=== PATIENT | female | born 1950 | race African-American/Black ===

== ENCOUNTER 2020-03-05 08:27 | Outpatient (REF) | payer OTHER, MEDICAID, SELFPAY ==
[2020-03-05 11:45] LABS: Glucose Urine UA NEG (NEG); Leukocyte Esterase Urine NEG (NEG); Nitrite Urine NEG (NEG); PH 5.5 (5.0-8.0); Urine Blood 2+ (NEG); Urine Ketones NEG (NEG); Urine Protein NEG (NEG-TRACE)
[2020-03-05 11:48] LABS: Appearance Urine CLEAR; Color Urine YELLOW
[2020-03-05 12:22] LABS: Erythrocyte Sedimentation Rate 13 MM/HR (0-20)
[2020-03-05 12:29] LABS: Bacteria Urine TRACE /LPF; Squamous Epithelial Cell Urine 1+ /LPF; WBC Urine 0-2 /HPF (0-4)
== END 2020-03-05 08:28 | disposition home or self-care (01) ==
LOC: HO.HMGCLDS 08:27
PROVIDERS: PCP Internal Medicine; Visit Provider Internal Medicine
DX: R30.0 Dysuria (principal); M19.90 Unspecified osteoarthritis, unspecified site
CPT/HCPCS: 36415; 81001; 85652

== ENCOUNTER 2021-04-15 09:21 | Outpatient (REF) | payer OTHER, SELFPAY ==
[2021-04-15 11:26] LABS: Hematocrit 37.6 % (37.0-47.0); Hemoglobin 12.6 g/dl (12.0-16.0); Mean Corpuscular HGB Conc 33.5 g/dl (31.0-35.0); Mean Corpuscular Hemoglobin 32.3 pg (27.0-33.0); Mean Corpuscular Volume 96.4 fL (80.0-98.0); Mean Platelet Volume 10.6 fL (9.4-12.3); Platelet Count 235 X10*3/uL (160-400); Red Cell Distribution Width 12.7 % (11.0-16.0); White Blood Count 7.7 X10*3/uL (4.8-10.8)
[2021-04-15 12:08] LABS: TSH reflex Free T4 0.68 uIU/mL (0.32-4.0)
[2021-04-15 12:09] LABS: Alanine Aminotransferase 18 U/L (0-31); Albumin Level 4.1 g/dL (3.5-5.0); Alkaline Phosphatase 85 U/L (39-117); Anion Gap 14 (12-20); Aspartate Amino Transferase 48 U/L (5-31); Bilirubin Total 0.9 mg/dL (0.0-1.0); Blood Urea Nitrogen 8 mg/dL (9-16); Calcium 9.3 mg/dL (8.4-10.2); Carbon Dioxide 28 mmol/L (22-29); Chloride 101 mmol/L (96-108); Cholesterol 111 mg/dL; Estimated Glomerular Filt Rate > 60; Glucose Fasting 245 mg/dL (60-99); HDL Cholesterol 42 mg/dL; LDL Cholesterol Calculated 54 mg/dl; Potassium 4.7 mmol/L (3.3-5.1); Sodium 138 mmol/L (135-145); Total Protein 6.5 g/dL (6.5-8.0); Triglycerides 76 mg/dL
[2021-04-15 12:16] LABS: Estimated Average Glucose 206 mg/dL; Hemoglobin A1c % 8.8 %
[2021-04-15 12:18] LABS: Creatinine Urine 93.94 mg/dL; Microalbum/Creatinine Ratio Ur 23.4 ug/mg cr
== END 2021-04-15 09:22 | disposition home or self-care (01) ==
LOC: HO.HMGCLDS 09:21
PROVIDERS: PCP Internal Medicine; Visit Provider Internal Medicine
DX: E78.5 Hyperlipidemia, unspecified (principal); I10 Essential (primary) hypertension; E11.9 Type 2 diabetes mellitus without complications
CPT/HCPCS: 36415; 80053; 80061; 82043; 83036; 84443; 85027

== ENCOUNTER 2021-05-05 14:11 | Outpatient (REF) | payer OTHER, SELFPAY | END 2021-05-05 14:12 | disposition home or self-care (01) | LOC: HO.LNP 14:11 | PROVIDERS: Visit Provider Physician Assistant Medical | DX: L98.9 Disorder of the skin and subcutaneous tissue, unspecified (principal) | CPT/HCPCS: 87071; 87205 ==

== ENCOUNTER 2021-11-29 11:17 | Outpatient (REF) | payer OTHER, SELFPAY ==
[2021-11-29 13:33] LABS: MANUAL DIFF FLAG NO
[2021-11-29 13:41] LABS: Appearance Urine CLEAR; Color Urine YELLOW; Glucose Urine UA NEG (NEG); Leukocyte Esterase Urine NEG (NEG); Nitrite Urine NEG (NEG); Specific Gravity - Urine 1.015 (1.005-1.025); UACC Culture Trigger NO; Urine Blood 1+ (NEG); Urine Ketones NEG (NEG); Urine Protein NEG (NEG-TRACE)
[2021-11-29 13:43] LABS: Basophils Percent Auto 0.4 % (0-2); Eosinophils Absolute Auto 0.7 X10*3/uL (0.0-0.4); Eosinophils Percent Auto 8.6 % (0-4); Hematocrit 36.8 % (37.0-47.0); Hemoglobin 11.8 g/dl (12.0-16.0); Imm Gran Abs Auto 0.02 X10*3/uL (0.00-0.03); Imm Gran Pct Auto 0.3 % (0.0-0.4); Lymphocytes Absolute Auto 3.2 X10*3/uL (1.2-4.9); Lymphocytes Percent Auto 40.2 % (20-40); Mean Corpuscular HGB Conc 32.1 g/dl (31.0-35.0); Mean Corpuscular Hemoglobin 31.5 pg (27.0-33.0); Mean Corpuscular Volume 98.1 fL (80.0-98.0); Mean Platelet Volume 10.5 fL (9.4-12.3); Monocytes Absolute Auto 0.4 X10*3/uL (0.1-1.2); Monocytes Percent Auto 5.4 % (2-11); Neutrophils Absolute Auto 3.6 x10*3/uL (2.0-8.3); Neutrophils Percent Auto 45.1 % (45-73); Platelet Count 245 X10*3/uL (160-400); Red Blood Count 3.75 X10*6/uL (4.20-5.50); Red Cell Distribution Width 13.1 % (11.0-16.0); White Blood Count 7.9 X10*3/uL (4.8-10.8)
[2021-11-29 14:04] LABS: Squamous Epithelial Cell Urine 1+ /LPF
[2021-11-29 14:05] LABS: Bacteria Urine 1+ /LPF; WBC Urine 0 /HPF (0-4)
[2021-11-29 14:07] LABS: Creatinine Urine 74.93 mg/dL
[2021-11-29 14:16] LABS: Alanine Aminotransferase 15 U/L (0-31); Albumin Level 4.3 g/dL (3.5-5.0); Alkaline Phosphatase 81 U/L (39-117); Anion Gap 12 (12-20); Aspartate Amino Transferase 50 U/L (5-31); Bilirubin Total 0.8 mg/dL (0.0-1.0); Blood Urea Nitrogen 11 mg/dL (9-16); Calcium 9.6 mg/dL (8.4-10.2); Carbon Dioxide 28 mmol/L (22-29); Chloride 104 mmol/L (96-108); Cholesterol 132 mg/dL; Estimated Glomerular Filt Rate > 60; Glucose Fasting 119 mg/dL (60-99); HDL Cholesterol 51 mg/dL; LDL Cholesterol Calculated 58 mg/dl; Potassium 4.7 mmol/L (3.3-5.1); Sodium 139 mmol/L (135-145); Total Protein 6.9 g/dL (6.5-8.0); Triglycerides 119 mg/dL
== END 2021-11-29 11:18 | disposition home or self-care (01) ==
LOC: HO.HMGCLDS 11:17
PROVIDERS: PCP Internal Medicine; Visit Provider Internal Medicine
DX: E11.9 Type 2 diabetes mellitus without complications (principal); E78.5 Hyperlipidemia, unspecified; I10 Essential (primary) hypertension
CPT/HCPCS: 36415; 80053; 80061; 81001; 82043; 85025

== ENCOUNTER 2022-06-01 09:34 | Outpatient (REF) | payer OTHER, SELFPAY ==
[2022-06-01 11:14] LABS: MANUAL DIFF FLAG NO
[2022-06-01 11:17] LABS: Basophils Percent Auto 0.4 % (0-2); Eosinophils Absolute Auto 0.8 X10*3/uL (0.0-0.4); Eosinophils Percent Auto 11.1 % (0-4); Hematocrit 39.6 % (37.0-47.0); Hemoglobin 13.4 g/dl (12.0-16.0); Imm Gran Abs Auto 0.02 X10*3/uL (0.00-0.03); Imm Gran Pct Auto 0.3 % (0.0-0.4); Lymphocytes Absolute Auto 2.5 X10*3/uL (1.2-4.9); Lymphocytes Percent Auto 34.6 % (20-40); Mean Corpuscular HGB Conc 33.8 g/dl (31.0-35.0); Mean Corpuscular Volume 94.5 fL (80.0-98.0); Mean Platelet Volume 10.8 fL (9.4-12.3); Monocytes Absolute Auto 0.4 X10*3/uL (0.1-1.2); Monocytes Percent Auto 5.8 % (2-11); Neutrophils Absolute Auto 3.4 x10*3/uL (2.0-8.3); Neutrophils Percent Auto 47.8 % (45-73); Platelet Count 249 X10*3/uL (160-400); Red Blood Count 4.19 X10*6/uL (4.20-5.50); Red Cell Distribution Width 12.8 % (11.0-16.0); White Blood Count 7.2 X10*3/uL (4.8-10.8)
[2022-06-01 11:50] LABS: Alanine Aminotransferase 17 U/L (0-31); Albumin Level 4.3 g/dL (3.5-5.0); Alkaline Phosphatase 84 U/L (39-117); Anion Gap 11 (12-20); Aspartate Amino Transferase 47 U/L (5-31); Blood Urea Nitrogen 9 mg/dL (9-16); Calcium 9.6 mg/dL (8.4-10.2); Carbon Dioxide 28 mmol/L (22-29); Chloride 103 mmol/L (96-108); Cholesterol 121 mg/dL; Estimated Glomerular Filt Rate > 60; HDL Cholesterol 39 mg/dL; LDL Cholesterol Calculated 62 mg/dl; Potassium 4.5 mmol/L (3.3-5.1); Sodium 137 mmol/L (135-145); Total Protein 6.7 g/dL (6.5-8.0); Triglycerides 100 mg/dL
[2022-06-01 11:52] LABS: Estimated Average Glucose 272 mg/dL; Hemoglobin A1c % 11.1 %
[2022-06-01 11:53] LABS: Glucose Fasting 371 mg/dL (60-99)
== END 2022-06-01 09:35 | disposition home or self-care (01) ==
LOC: HO.HMGCLDS 09:34
PROVIDERS: PCP Internal Medicine; Visit Provider Internal Medicine
DX: E11.9 Type 2 diabetes mellitus without complications (principal); E78.5 Hyperlipidemia, unspecified
CPT/HCPCS: 36415; 80053; 80061; 83036; 85025

== ENCOUNTER 2022-08-01 08:13 | Outpatient (REF) | payer OTHER, SELFPAY | END 2022-08-01 08:14 | disposition home or self-care (01) | LOC: HO.SH 08:13 | PROVIDERS: Visit Provider Internal Medicine | DX: Z01.118 Encounter for examination of ears and hearing with other abnormal findings (principal); H90.3 Sensorineural hearing loss, bilateral | CPT/HCPCS: 92553; 92555; 92567 ==

== ENCOUNTER 2022-09-22 09:34 | Outpatient (REF) | payer OTHER, SELFPAY ==
[2022-09-22 12:12] LABS: Alanine Aminotransferase 14 U/L (0-31); Albumin Level 4.2 g/dL (3.5-5.0); Alkaline Phosphatase 80 U/L (39-117); Anion Gap 11 (12-20); Aspartate Amino Transferase 44 U/L (5-31); Bilirubin Total 0.8 mg/dL (0.0-1.0); Blood Urea Nitrogen 13 mg/dL (9-16); Calcium 9.3 mg/dL (8.4-10.2); Carbon Dioxide 29 mmol/L (22-29); Chloride 107 mmol/L (96-108); Cholesterol 121 mg/dL; Estimated Glomerular Filt Rate > 60; Glucose Fasting 124 mg/dL (60-99); HDL Cholesterol 47 mg/dL; LDL Cholesterol Calculated 61 mg/dl; Potassium 4.6 mmol/L (3.3-5.1); Sodium 142 mmol/L (135-145); Total Protein 6.6 g/dL (6.5-8.0); Triglycerides 69 mg/dL
[2022-09-22 12:20] LABS: Estimated Average Glucose 146 mg/dL; Hemoglobin A1c % 6.7 %
== END 2022-09-22 09:35 | disposition home or self-care (01) ==
LOC: HO.HMGCLDS 09:34
PROVIDERS: PCP Internal Medicine; Visit Provider Internal Medicine
DX: E78.5 Hyperlipidemia, unspecified (principal); I10 Essential (primary) hypertension; E11.9 Type 2 diabetes mellitus without complications
CPT/HCPCS: 36415; 80053; 80061; 83036

== ENCOUNTER 2022-12-01 09:20 | Outpatient (REF) | payer OTHER, SELFPAY ==
[2022-12-01 11:29] LABS: MANUAL DIFF FLAG NO
[2022-12-01 11:31] LABS: Appearance Urine Clear; Color Urine Yellow; Glucose Urine UA Negative (Negative); Leukocyte Esterase Urine Negative (Negative); Nitrite Urine Negative (Negative); PH 5.5 (5.0-9.0); Specific Gravity - Urine <= 1.005 (1.005-1.025); Urine Blood Negative (Negative); Urine Ketones Negative (Negative); Urine Protein Negative (Neg-Trace)
[2022-12-01 11:40] LABS: Basophils Percent Auto 0.4 % (0-2); Eosinophils Absolute Auto 0.6 X10*3/uL (0.0-0.4); Eosinophils Percent Auto 8.3 % (0-4); Hematocrit 36.3 % (37.0-47.0); Hemoglobin 11.8 g/dl (12.0-16.0); Imm Gran Abs Auto 0.01 X10*3/uL (0.00-0.03); Imm Gran Pct Auto 0.1 % (0.0-0.4); Lymphocytes Absolute Auto 2.6 X10*3/uL (1.2-4.9); Lymphocytes Percent Auto 38.6 % (20-40); Mean Corpuscular HGB Conc 32.5 g/dl (31.0-35.0); Mean Corpuscular Hemoglobin 31.4 pg (27.0-33.0); Mean Corpuscular Volume 96.5 fL (80.0-98.0); Mean Platelet Volume 10.7 fL (9.4-12.3); Monocytes Absolute Auto 0.4 X10*3/uL (0.1-1.2); Monocytes Percent Auto 6.6 % (2-11); Neutrophils Absolute Auto 3.1 x10*3/uL (2.0-8.3); Platelet Count 237 X10*3/uL (160-400); Red Blood Count 3.76 X10*6/uL (4.20-5.50); Red Cell Distribution Width 13.2 % (11.0-16.0); White Blood Count 6.7 X10*3/uL (4.8-10.8)
[2022-12-01 12:10] LABS: Alanine Aminotransferase 17 U/L (0-31); Albumin Level 4.2 g/dL (3.5-5.0); Alkaline Phosphatase 80 U/L (39-117); Anion Gap 15 (12-20); Aspartate Amino Transferase 45 U/L (5-31); Bilirubin Total 0.9 mg/dL (0.0-1.0); Blood Urea Nitrogen 9 mg/dL (9-16); Calcium 9.5 mg/dL (8.4-10.2); Carbon Dioxide 25 mmol/L (22-29); Chloride 106 mmol/L (96-108); Cholesterol 116 mg/dL; Estimated Average Glucose 123 mg/dL; Estimated Glomerular Filt Rate > 60; Glucose Fasting 122 mg/dL (60-99); HDL Cholesterol 41 mg/dL; Hemoglobin A1c % 5.9 %; LDL Cholesterol Calculated 59 mg/dl; Potassium 4.2 mmol/L (3.3-5.1); Sodium 142 mmol/L (135-145); Triglycerides 83 mg/dL
[2022-12-01 12:26] LABS: TSH reflex Free T4 0.55 uIU/mL (0.32-4.0)
[2022-12-01 12:27] LABS: Creatinine Urine 35.09 mg/dL; Microalbumin Urine < 5.0 mg/L
== END 2022-12-01 09:21 | disposition home or self-care (01) ==
LOC: HO.HMGCLDS 09:20
PROVIDERS: PCP Internal Medicine; Visit Provider Internal Medicine
DX: E11.9 Type 2 diabetes mellitus without complications (principal); E66.9 Obesity, unspecified; R30.0 Dysuria; E78.5 Hyperlipidemia, unspecified
CPT/HCPCS: 36415; 80053; 80061; 81003; 82043; 83036; 84443; 85025

== ENCOUNTER 2022-12-28 08:51 | Outpatient (AMB) | payer OTHER, SELFPAY ==
--- NOTE | 2022-12-28 09:16 | MHC.PC.OV ---
Vital Signs 12/28/22 09:17 Height 5 ft 3 in Weight 252 lb BMI 44.6 BP 116/64 Blood Pressure Location Rt brachial Position Sitting Pulse 63 Pulse Source Pulse Oximeter Pulse Oximetry (%) 97 Oxygen Delivery Method Room Air Intake Visit Reasons: Annual PE Intake Note: Pt is here today for PE. Allergies No Known Allergies Allergy (Verified 12/28/22 09:19) Tobacco use date assessed: 12/28/22 Fall risk assessment: No Falls in past year Last assessed Fall Risk: 12/28/22 Dental Screening Dental Screen Date: 12/28/22 Did you have a dental visit in the last 12 months?: Yes Did you have a dental problem in the last 6 months where you did not have access to dental care?: No Was dental information given to patient?: Patient has dentist HPI Annual PE HPI Details Patient presents for physical. She complains of worsening lower extremity swelling for the last month. Patient reports swelling worse at the end of the day. She has been sitting a lot with her legs down. Patient denies PND orthopnea dyspnea on exertion. Type 2 diabetes and hyperlipidemia are controlled on current medications. [facility] Medical History (Updated 12/28/22 @ 12:49 by Lolly Mchugh MD) Arthritis Diabetes DM type 2 (diabetes mellitus, type 2) Dysuria Foot pain, bilateral History of mammogram HTN (hypertension) Hyperlipidemia Normal colonoscopy Obesity Osteoarthritis of right knee Osteoarthritis of shoulders, bilateral Surgical History H/O colonoscopy History of hysterectomy History of knee replacement procedure of left knee Family History Father No problems noted. Mother No problems noted. Brother No problems noted. Brother No problems noted. Sister No problems noted. Sister No problems noted. Daughter No problems noted. Social History Housing: House Patient Tobacco Use Status: Current everyday Tobacco user Tobacco use type: Cigarette Cigarettes Per Day: 1 e-Cigarette/Vaping Use: Never Used Current occupational status: retired Cognitive needs: No Hearing needs: No Vision needs: Yes Questionnaire Thrive Questionnaire Date Thrive assessed: 07/21/22 AUDIT C Alcohol Use Questionnaire (AUDIT-C) 1. How often do you have a drink containing alcohol?: Never 3. How often do you have six or more drinks on one occasion?: Never Total Score: 0 GINO-7 AMB Questionnaire GINO-7 Date GINO - 7 assessed: 07/21/22 Source: Developed by Drs. Luis Armando Morales, Karime Green, Jann Joaquin and colleagues, with an educational denny from [employer]. Review of Systems Const All systems reviewed & are unremarkable except as noted in HPI and below Reports no additional complaints ENT Reports no additional complaints Card Reports no additional complaints Resp Reports no additional complaints GI Reports no additional complaints Reports no additional complaints Physical exam (Primary Care) Vital Signs: Last Vital Signs Pulse 63 12/28/22 09:17 BP 116/64 12/28/22 09:17 Pulse Ox 97 12/28/22 09:17 Oxygen Delivery Method Room Air 12/28/22 09:17 BMI result Body Mass Index 44.6 Tobacco/Smoking Status: Tobacco use Status Tobacco use date assessed 12/28/22 12/28/22 09:21 Patient Tobacco Use Status Current everyday Tobacco 12/28/22 09:21 Tobacco use type Cigarette 12/28/22 09:21 e-Cigarette/Vaping Use Never Used 12/28/22 09:21 Thrive Assessment: Date of Thrive Assessment Date Thrive assessed 07/21/22 12/28/22 09:21 Const General: no acute distress HENMT Head: Yes normal to inspection Ears: hearing grossly normal bilaterally Throat: Yes posterior oropharynx normal Neck Neck: Yes no lymphadenopathy and Yes supple Resp Effort & Inspection: normal respiratory effort Auscultation: clear to auscultation bilaterally Cardio Rhythm: regular rhythm Heart sounds: S1 normal heart sound present and S2 normal heart sound present GI Inspection: Yes normal to inspection and Yes obesity Palpation (GI): Soft to palpation Percussion: Yes normal to percussion Auscultation: normal bowel sounds Extrem Other: 4+ pitting edema bilaterally Assessment and Plan Assessment & Plan (1) Edema: Code(s): R60.9 - Edema, unspecified Plan: Start 40 mg of Lasix and patient was advised to elevate lower extremities and were compression stockings. Check basic metabolic panel and BNP in 1 week (2) DM type 2 (diabetes mellitus, type 2): Code(s): E11.9 - Type 2 diabetes mellitus without complications Plan: A1c is down to 5.9, continue ADA diet and metformin (3) Obesity: Code(s): E66.9 - Obesity, unspecified Plan: Weight loss discussed with the patient (4) Annual physical exam: Code(s): Z00.00 - Encounter for general adult medical examination without abnormal findings Plan: Well-balanced diet increase physical activity weight loss discussed with the patient (5) Hyperlipidemia: Comment: noncompliant with med Code(s): E78.5 - Hyperlipidemia, unspecified Plan: Continue statin Orders: Orders Basic Metabolic Panel 1 Week E11.9 - Type 2 diabetes mellitus without complications, R60.9 - Edema, unspecified B Type Natriuretic Peptide 1 Week E11.9 - Type 2 diabetes mellitus without complications, R60.9 - Edema, unspecified Medications: New furosemide (Lasix) 40 mg PO DAILY 30 tabs 3RF Coding Level of Care Code Est Pt Prev Care >65y(55434) Diagnoses Edema R60.9 DM type 2 (diabetes mellitus, type 2) E11.9 Obesity E66.9 Annual physical exam Z00.00 Hyperlipidemia E78.5
[2022-12-28 09:17] VITALS: BP 116/64; PULSE 63; O2SAT 97; BMI 44.6
== END 2022-12-28 11:19 | disposition home or self-care (01) ==
PROVIDERS: Visit Provider Internal Medicine
DX: Z00.00 Encounter for general adult medical examination without abnormal findings (principal); E11.9 Type 2 diabetes mellitus without complications; E66.9 Obesity, unspecified; Z68.41 Body mass index [BMI] 40.0-44.9, adult; R60.9 Edema, unspecified; E78.5 Hyperlipidemia, unspecified
CPT/HCPCS: 99397

== ENCOUNTER 2023-01-04 09:53 | Outpatient (REF) | payer OTHER, MEDICAID, SELFPAY ==
[2023-01-04 14:13] LABS: Anion Gap 17 (12-20); Blood Urea Nitrogen 9 mg/dL (9-16); Calcium 9.9 mg/dL (8.4-10.2); Carbon Dioxide 25 mmol/L (22-29); Chloride 101 mmol/L (96-108); Estimated Glomerular Filt Rate > 60; Glucose Random 224 mg/dL (60-115); Potassium 4.4 mmol/L (3.3-5.1); Sodium 139 mmol/L (135-145)
[2023-01-04 14:15] LABS: B Type Natriuretic Peptide < 10 pg/mL (<100)
== END 2023-01-04 09:54 | disposition home or self-care (01) ==
LOC: HO.HMGCLDS 09:53
PROVIDERS: PCP Internal Medicine; Visit Provider Internal Medicine
DX: E11.9 Type 2 diabetes mellitus without complications (principal); R60.9 Edema, unspecified
CPT/HCPCS: 36415; 80048; 83880

== ENCOUNTER 2023-02-09 09:57 | Outpatient (AMB) | payer OTHER, SELFPAY ==
[2023-02-09 10:53] VITALS: BP 122/66; PULSE 67; O2SAT 97; BMI 43.6
--- NOTE | 2023-02-09 10:53 | MHC.PC.OV ---
Vital Signs 02/09/23 10:53 Height 5 ft 3 in Weight 246 lb BMI 43.6 BP 122/66 Blood Pressure Location Lt brachial Position Sitting Pulse 67 Pulse Source Pulse Oximeter Pulse Oximetry (%) 97 Oxygen Delivery Method Room Air Intake Visit Reasons: 6week follow up Intake Note: Pt is here today for 6 weeks follow up visit. Pt's daughter states that pt fell yesterday and she was at [facility] ER. Pt needs referral to [facility]. Allergies No Known Allergies Allergy (Verified 02/09/23 10:55) Medication List - Last Reconciled 02/09/23 by Lolly Mchugh MD atorvastatin 40 mg PO DAILY 90 days blood sugar diagnostic ([employer] Ultra Blue Test Strip) twice a day blood-glucose meter ([employer] Verio Flex Start kit) As directed clotrimazole 2% (Clotrimazole 3 Day) 1 appful vaginal BEDTIME 3 days dulaglutide (Trulicity) 1.5 mg (0.5 mL) subcut QWEEK fluconazole 150 mg PO Q3D 2 doses furosemide 40 mg PO DAILY metformin 1,000 mg PO BID nystatin 1 appl topical DAILY nystatin apply topically daily; pen needle, diabetic (BD Ultra-Fine Short Pen Needle) As directed Tobacco use date assessed: 12/28/22 HPI 6week follow up HPI Details PATIENT PRESENTS FOR THE FOLLOW-UP OF CHRONIC LOWER EXTREMITY EDEMA IMPROVED ON 40 MG OF FUROSEMIDE. PATIENT TRIPPED AND FELL LAST WEEK AND WENT TO THE ER COMPLAINING OF RIGHT KNEE INJURY. SHE HAD NEGATIVE X-RAY ,WAS GIVEN KNEE BRACE AND WAS RECOMMENDED TO SEE ORTHOPEDIC SURGEON. TYPE 2 DIABETES IS STABLE ON METFORMIN [facility] Medical History (Updated 02/09/23 @ 11:28 by Lolly Mchugh MD) DM type 2 (diabetes mellitus, type 2) Foot pain, bilateral Osteoarthritis of shoulders, bilateral Normal colonoscopy Dysuria Arthritis History of mammogram Osteoarthritis of right knee Obesity Hyperlipidemia Diabetes HTN (hypertension) Surgical History History of hysterectomy History of knee replacement procedure of left knee H/O colonoscopy Family History Father No problems noted. Mother No problems noted. Brother No problems noted. Brother No problems noted. Sister No problems noted. Sister No problems noted. Daughter No problems noted. Social History Housing: House Patient Tobacco Use Status: Current everyday Tobacco user Tobacco use type: Cigarette Cigarettes Per Day: 1 e-Cigarette/Vaping Use: Never Used Current occupational status: retired Cognitive needs: No Hearing needs: No Vision needs: Yes Questionnaire Thrive Questionnaire Date Thrive assessed: 07/21/22 GINO-7 AMB Questionnaire GINO-7 Date GINO - 7 assessed: 07/21/22 Source: Developed by Drs. Luis Armando Morales, Karime Green, Jann Joaquin and colleagues, with an educational denny from [employer]. Review of Systems Const All systems reviewed & are unremarkable except as noted in HPI and below Reports no additional complaints Eyes Reports no additional complaints ENT Reports no additional complaints Card Reports no additional complaints Resp Reports no additional complaints GI Reports no additional complaints Reports no additional complaints Physical exam (Primary Care) Vital Signs: Last Vital Signs Pulse 67 02/09/23 10:53 BP 122/66 02/09/23 10:53 Pulse Ox 97 02/09/23 10:53 Oxygen Delivery Method Room Air 02/09/23 10:53 BMI result Body Mass Index 43.6 Tobacco/Smoking Status: Tobacco use Status Tobacco use date assessed 12/28/22 02/09/23 10:56 Patient Tobacco Use Status Current everyday Tobacco 02/09/23 10:56 Tobacco use type Cigarette 02/09/23 10:56 e-Cigarette/Vaping Use Never Used 02/09/23 10:56 Thrive Assessment: Date of Thrive Assessment Date Thrive assessed 07/21/22 02/09/23 10:56 Const General: no acute distress Eyes General: appearance normal, both eyes and all related structures Resp Effort & Inspection: normal respiratory effort Auscultation: clear to auscultation bilaterally Cardio Rhythm: regular rhythm Heart sounds: S1 normal heart sound present and S2 normal heart sound present GI Inspection: Yes normal to inspection Palpation (GI): Soft to palpation Extrem Other: 1+ pitting edema bilaterally, right knee in knee brace Assessment and Plan Assessment & Plan (1) DM type 2 (diabetes mellitus, type 2): Code(s): E11.9 - Type 2 diabetes mellitus without complications Plan: Continue metformin ADA diet follow-up in 6 months with a fasting labs before (2) HTN (hypertension): Comment: patient will monitor her blood pressure. She has not been taking lisinopril. Code(s): I10 - Essential (primary) hypertension Plan: Continue low-sodium diet increase physical activity weight loss discussed with the patient (3) Hyperlipidemia: Comment: noncompliant with med Code(s): E78.5 - Hyperlipidemia, unspecified Plan: Continue low-cholesterol diet (4) Obesity: Code(s): E66.9 - Obesity, unspecified Plan: Weight loss discussed with the patient (5) Edema: Code(s): R60.9 - Edema, unspecified Plan: Continue 40 mg of furosemide Orders: Orders Comprehensive [place]. Panel Fast 6 Months E11.9 - Type 2 diabetes mellitus without complications, E66.9 - Obesity, unspecified, E78.5 - Hyperlipidemia, unspecified, I10 - Essential (primary) hypertension Lipid Panel 6 Months E11.9 - Type 2 diabetes mellitus without complications, E66.9 - Obesity, unspecified, E78.5 - Hyperlipidemia, unspecified, I10 - Essential (primary) hypertension Hemoglobin A1c 6 Months E11.9 - Type 2 diabetes mellitus without complications, E66.9 - Obesity, unspecified, E78.5 - Hyperlipidemia, unspecified, I10 - Essential (primary) hypertension Complete Blood Count Auto Diff 6 Months E11.9 - Type 2 diabetes mellitus without complications, E66.9 - Obesity, unspecified, E78.5 - Hyperlipidemia, unspecified, I10 - Essential (primary) hypertension Microalbumin, Random (w Creat) 6 Months E11.9 - Type 2 diabetes mellitus without complications, E66.9 - Obesity, unspecified, E78.5 - Hyperlipidemia, unspecified, I10 - Essential (primary) hypertension Referrals Orthopedics Referral E11.9 - Type 2 diabetes mellitus without complications, E66.9 - Obesity, unspecified, E78.5 - Hyperlipidemia, unspecified, I10 - Essential (primary) hypertension, S89.91XA - Unspecified injury of right lower leg, initial encounter Coding Level of Care Code Est Pt Level 4 (13863) Diagnoses DM type 2 (diabetes mellitus, type 2) E11.9 HTN (hypertension) I10 Hyperlipidemia E78.5 Obesity E66.9 Edema R60.9
== END 2023-02-09 11:38 | disposition home or self-care (01) ==
PROVIDERS: PCP Internal Medicine; Visit Provider Internal Medicine
DX: E11.9 Type 2 diabetes mellitus without complications (principal); I10 Essential (primary) hypertension; E66.9 Obesity, unspecified; Z68.41 Body mass index [BMI] 40.0-44.9, adult; E78.5 Hyperlipidemia, unspecified; R60.9 Edema, unspecified
CPT/HCPCS: 99214

== ENCOUNTER 2023-08-20 08:48 | Outpatient (REF) | payer OTHER, MEDICAID, SELFPAY ==
[2023-08-20 10:57] LABS: MANUAL DIFF FLAG NO
[2023-08-20 11:24] LABS: Basophils Percent Auto 0.5 % (0-2); Eosinophils Absolute Auto 0.5 X10*3/uL (0.0-0.4); Eosinophils Percent Auto 9.1 % (0-4); Hematocrit 34.1 % (37.0-47.0); Imm Gran Abs Auto 0.01 X10*3/uL (0.00-0.03); Imm Gran Pct Auto 0.2 % (0.0-0.4); Lymphocytes Absolute Auto 2.5 X10*3/uL (1.2-4.9); Lymphocytes Percent Auto 41.2 % (20-40); Mean Corpuscular HGB Conc 32.3 g/dl (31.0-35.0); Mean Corpuscular Volume 96.1 fL (80.0-98.0); Mean Platelet Volume 9.5 fL (9.4-12.3); Monocytes Absolute Auto 0.3 X10*3/uL (0.1-1.2); Neutrophils Absolute Auto 2.6 x10*3/uL (2.0-8.3); Platelet Count 277 X10*3/uL (160-400); Red Blood Count 3.55 X10*6/uL (4.20-5.50); Red Cell Distribution Width 14.1 % (11.0-16.0)
[2023-08-20 11:53] LABS: Estimated Average Glucose 117 mg/dL; Hemoglobin A1c % 5.7 % (<6.0)
[2023-08-20 12:05] LABS: Alanine Aminotransferase 11 U/L (0-31); Albumin Level 4.1 g/dL (3.5-5.0); Alkaline Phosphatase 78 U/L (39-117); Anion Gap 15 (12-20); Aspartate Amino Transferase 42 U/L (5-31); Bilirubin Total 0.5 mg/dL (0.0-1.0); Blood Urea Nitrogen 10 mg/dL (9-16); Calcium 9.6 mg/dL (8.4-10.2); Carbon Dioxide 25 mmol/L (22-29); Chloride 107 mmol/L (96-108); Cholesterol 110 mg/dL (<200); Estimated Glomerular Filt Rate > 60; Glucose Fasting 85 mg/dL (60-99); HDL Cholesterol 43 mg/dL (>40); LDL Cholesterol Calculated 51 mg/dL (<100); Potassium 4.5 mmol/L (3.3-5.1); Sodium 142 mmol/L (135-145); Total Protein 7.1 g/dL (6.5-8.0); Triglycerides 83 mg/dL (<150)
== END 2023-08-20 08:49 | disposition home or self-care (01) ==
LOC: HO.HMGCLDS 08:48
PROVIDERS: PCP Internal Medicine; Visit Provider Internal Medicine
DX: E11.9 Type 2 diabetes mellitus without complications (principal); I10 Essential (primary) hypertension; E66.9 Obesity, unspecified; E78.5 Hyperlipidemia, unspecified
CPT/HCPCS: 36415; 80053; 80061; 83036; 85025

== ENCOUNTER 2023-08-22 08:52 | Outpatient (AMB) | payer OTHER, MEDICAID, SELFPAY ==
--- NOTE | 2023-08-22 09:01 | MHC.PC.OV ---
Vital Signs 08/22/23 09:03 Height 5 ft 3 in Weight 246 lb BMI 43.6 BP 127/78 Blood Pressure Location Lt brachial Position Sitting Pulse 75 Pulse Source Pulse Oximeter Pulse Oximetry (%) 97 Oxygen Delivery Method Room Air Intake Visit Reasons: 6 Month follow up Diabetes edema Intake Note: Shauna coming today for 6 months follow up Diabetes edema, pt have concern no apatite, feel tired and weak in the past 3 weeks. [employer] Inspector Required: No Information Interpreted: non-clinical & clinical Accompanied by: Daughter Allergies No Known Allergies Allergy (Verified 08/22/23 09:07) Medication List - Last Reconciled 08/22/23 by Lolly Mchugh MD atorvastatin 40 mg PO DAILY 90 days blood-glucose meter ([employer] Verio Flex Start kit) As directed clotrimazole 2% (Clotrimazole 3 Day) 1 appful vaginal BEDTIME 3 days dulaglutide (Trulicity) 3 mg (0.5 mL) subcut QWEEK fluconazole 150 mg PO Q3D 2 doses furosemide 40 mg PO DAILY metformin 1,000 mg PO BID nystatin 1 appl topical DAILY OneTouch Ultra Test (blood sugar diagnostic) twice a day NS pen needle, diabetic (BD Ultra-Fine Short Pen Needle) As directed Tobacco use date assessed: 08/22/23 Fall risk assessment: 1 Fall in past year (5 months ago) Dental Screening Dental Screen Date: 08/22/23 Did you have a dental visit in the last 12 months?: No Was dental information given to patient?: Patient has dentist HPI 6 Month follow up Diabetes edema HPI Details Pt presents for f/u R knee arthroplasty and has been in PT. Pt reports nausea and decrease appetite since started 3 mg of Trulicity but reports improved fasting blood glucose down to 110. Hyperlipidemia is controlled on atorvastatin. [facility] Medical History (Updated 08/22/23 @ 10:11 by Lolly Mchugh MD) DM type 2 (diabetes mellitus, type 2) Foot pain, bilateral Osteoarthritis of shoulders, bilateral Normal colonoscopy Dysuria Arthritis History of mammogram Osteoarthritis of right knee Obesity Hyperlipidemia Diabetes Surgical History (Updated 08/22/23 @ 10:11 by Lolly Mchugh MD) History of knee replacement procedure of right knee History of hysterectomy History of knee replacement procedure of left knee H/O colonoscopy Family History Father No problems noted. Mother No problems noted. Brother No problems noted. Brother No problems noted. Sister No problems noted. Sister No problems noted. Daughter No problems noted. Social History (Updated 08/22/23 @ 09:12 by Montse Head MA) Household Members: Family Housing: House Patient Tobacco Use Status: Current everyday Tobacco user Tobacco use type: Cigarette Cigarettes Per Day: 1 e-Cigarette/Vaping Use: Never Used Current occupational status: retired Cognitive needs: No Hearing needs: No Vision needs: Yes Questionnaire PHQ-9 Over the last 2 weeks, how often have you been bothered by any of the following problems? 1. Little interest or pleasure in doing things: not at all 2. Feeling down, depressed, or hopeless: several days 3. Trouble falling or staying asleep, or sleeping too much: not at all 4. Feeling tired or having little energy: several days 5. Poor appetite or overeating: not at all 6. Feeling bad about yourself - or that you are a failure or have let yourself or your family down: not at all 7. Trouble concentrating on things, such as reading the newspaper or watching television: not at all 8. Moving or speaking so slowly that other people could have noticed. Or the opposite - being so fidgety or restless that you have been moving around a lot more than usual: not at all 9. Thoughts that you would be better off or of hurting yourself in some way: not at all Total score: 2 Depression Screening Interpretation: Negative Depression Screening Done: Yes [id number] - PHQ-9 Billing: Yes Source: Developed by Drs. Luis Armando Morales, Karime Green, Jann Joaquin and colleagues, with an educational denny from [employer]. Thrive Questionnaire Date Thrive assessed: 08/22/23 AUDIT C Alcohol Use Questionnaire (AUDIT-C) 1. How often do you have a drink containing alcohol?: Never 2. How many drinks containing alcohol do you have on a typical day when you are drinking?: 1 or 2 3. How often do you have six or more drinks on one occasion?: Never Total Score: 0 GINO-7 AMB Questionnaire GINO-7 Date GINO - 7 assessed: 07/21/22 Feeling nervous, anxious, or on edge: 0 = Not at all Not being able to stop or control worryin = Not at all Worrying too much about different things: 0 = Not at all Trouble relaxin = Not at all Being so restless that it is hard to sit still: 0 = Not at all Becoming easily annoyed or irritable: 0 = Not at all Feeling afraid as if something awful might happen: 0 = Not at all Total GINO-7 score (0-4 normal; 5-9 mild; 10-14 moderate; 15-21 severe): 0 Source: Developed by Drs. Luis Armando Morales, Karime Green, Jann Joaquin and colleagues, with an educational denny from [employer]. Review of Systems Const All systems reviewed & are unremarkable except as noted in HPI and below Reports no additional complaints Eyes Reports no additional complaints ENT Reports no additional complaints Card Reports no additional complaints Resp Reports no additional complaints GI Reports no additional complaints Reports no additional complaints Physical exam (Primary Care) Vital Signs: Last Vital Signs Pulse 75 08/22/23 09:03 BP 127/78 08/22/23 09:03 Pulse Ox 97 08/22/23 09:03 Oxygen Delivery Method Room Air 08/22/23 09:03 BMI result Body Mass Index 43.6 Tobacco/Smoking Status: Tobacco use Status Tobacco use date assessed 08/22/23 08/22/23 09:16 Patient Tobacco Use Status Current everyday Tobacco 08/22/23 09:12 Tobacco use type Cigarette 08/22/23 09:12 e-Cigarette/Vaping Use Never Used 08/22/23 09:12 PHQ-9: PHQ-9 Score PHQ-9: Total score 2 08/22/23 09:16 Depression Screening Interpretation: Negative Thrive Assessment: Date of Thrive Assessment Date Thrive assessed 08/22/23 08/22/23 09:16 Const General: no acute distress HENMT Head: Yes normal to inspection Eyes General: appearance normal, both eyes and all related structures Resp Effort & Inspection: normal respiratory effort Auscultation: clear to auscultation bilaterally Cardio Rhythm: regular rhythm Heart sounds: S1 normal heart sound present and S2 normal heart sound present GI Inspection: Yes normal to inspection Palpation (GI): Soft to palpation Extrem Other: 1+ pitting edema bilaterally Assessment and Plan Assessment & Plan (1) DM type 2 (diabetes mellitus, type 2): Code(s): E11.9 - Type 2 diabetes mellitus without complications Plan: A1c is down to 5.7, continue ADA diet current medications increase physical activity and weight loss discussed with the patient. Follow-up in 4 months (2) Hyperlipidemia: Code(s): E78.5 - Hyperlipidemia, unspecified Plan: Continue statin (3) Obesity: Code(s): E66.9 - Obesity, unspecified Plan: Increase physical activity weight loss discussed with the patient (4) History of arthroplasty of right knee: Code(s): Z96.651 - Presence of right artificial knee joint Plan: Follow-up with with ortho and continue physical therapy Orders: Orders Microalbumin, Random (w Creat) 4 Months E11.9 - Type 2 diabetes mellitus without complications, E66.9 - Obesity, unspecified, E78.5 - Hyperlipidemia, unspecified TSH reflex Free T4 4 Months E11.9 - Type 2 diabetes mellitus without complications, E66.9 - Obesity, unspecified, E78.5 - Hyperlipidemia, unspecified Comprehensive [place]. Panel Fast 4 Months E11.9 - Type 2 diabetes mellitus without complications, E66.9 - Obesity, unspecified, E78.5 - Hyperlipidemia, unspecified Lipid Panel 4 Months E11.9 - Type 2 diabetes mellitus without complications, E66.9 - Obesity, unspecified, E78.5 - Hyperlipidemia, unspecified Hemoglobin A1c 4 Months E11.9 - Type 2 diabetes mellitus without complications, E66.9 - Obesity, unspecified, E78.5 - Hyperlipidemia, unspecified Complete Blood Count Auto Diff 4 Months E11.9 - Type 2 diabetes mellitus without complications, E66.9 - Obesity, unspecified, E78.5 - Hyperlipidemia, unspecified Medications: New nystatin 1 appl topical DAILY 60 grams 3RF Discontinued dulaglutide (Trulicity) Discontinued Reason: Doctor's Order 1.5 mg (0.5 mL) subcut QWEEK 6 mL 4RF Coding Level of Care Code Est Pt Level 4 (78866) Diagnoses DM type 2 (diabetes mellitus, type 2) E11.9 Hyperlipidemia E78.5 Obesity E66.9 History of arthroplasty of right knee Z96.651
[2023-08-22 09:03] VITALS: BP 127/78; PULSE 75; O2SAT 97; BMI 43.6
== END 2023-08-22 10:12 | disposition home or self-care (01) ==
PROVIDERS: PCP Internal Medicine; Visit Provider Internal Medicine
DX: E11.9 Type 2 diabetes mellitus without complications (principal); E66.9 Obesity, unspecified; Z68.41 Body mass index [BMI] 40.0-44.9, adult; E78.5 Hyperlipidemia, unspecified; Z96.651 Presence of right artificial knee joint
CPT/HCPCS: 99214

== ENCOUNTER 2023-08-22 09:50 | Outpatient (REF) | payer OTHER, MEDICAID, SELFPAY ==
[2023-08-22 14:03] LABS: Creatinine Urine 98.77 mg/dL
== END 2023-08-22 09:51 | disposition home or self-care (01) ==
LOC: HO.HMGCLNP 09:50
PROVIDERS: PCP Internal Medicine; Visit Provider Internal Medicine
DX: E11.9 Type 2 diabetes mellitus without complications (principal); E78.5 Hyperlipidemia, unspecified; E66.9 Obesity, unspecified; I10 Essential (primary) hypertension
CPT/HCPCS: 82043; 82570

== ENCOUNTER 2023-12-28 08:38 | Outpatient (REF) | payer OTHER, SELFPAY ==
[2023-12-28 10:27] LABS: MANUAL DIFF FLAG NO
[2023-12-28 10:36] LABS: Basophils Percent Auto 0.5 % (0-2); Eosinophils Absolute Auto 0.6 X10*3/uL (0.0-0.4); Eosinophils Percent Auto 8.6 % (0-4); Hematocrit 36.3 % (37.0-47.0); Hemoglobin 11.9 g/dl (12.0-16.0); Imm Gran Abs Auto 0.01 X10*3/uL (0.00-0.03); Imm Gran Pct Auto 0.2 % (0.0-0.4); Lymphocytes Absolute Auto 2.8 X10*3/uL (1.2-4.9); Mean Corpuscular HGB Conc 32.8 g/dl (31.0-35.0); Mean Corpuscular Hemoglobin 31.9 pg (27.0-33.0); Mean Corpuscular Volume 97.3 fL (80.0-98.0); Mean Platelet Volume 9.9 fL (9.4-12.3); Monocytes Absolute Auto 0.4 X10*3/uL (0.1-1.2); Monocytes Percent Auto 5.6 % (2-11); Neutrophils Absolute Auto 2.8 x10*3/uL (2.0-8.3); Neutrophils Percent Auto 43.1 % (45-73); Platelet Count 237 X10*3/uL (160-400); Red Blood Count 3.73 X10*6/uL (4.20-5.50); Red Cell Distribution Width 14.1 % (11.0-16.0); White Blood Count 6.6 X10*3/uL (4.8-10.8)
[2023-12-28 10:57] LABS: Estimated Average Glucose 117 mg/dL; Hemoglobin A1c % 5.7 % (<6.0)
[2023-12-28 11:27] LABS: Alanine Aminotransferase 13 U/L (0-31); Albumin Level 4.1 g/dL (3.5-5.0); Alkaline Phosphatase 82 U/L (39-117); Anion Gap 11 (12-20); Aspartate Amino Transferase 55 U/L (5-31); Bilirubin Total 0.8 mg/dL (0.0-1.0); Blood Urea Nitrogen 10 mg/dL (9-16); Calcium 9.6 mg/dL (8.4-10.2); Carbon Dioxide 27 mmol/L (22-29); Chloride 108 mmol/L (96-108); Cholesterol 108 mg/dL (<200); Estimated Glomerular Filt Rate > 60; Glucose Fasting 84 mg/dL (60-99); HDL Cholesterol 45 mg/dL (>40); LDL Cholesterol Calculated 46 mg/dL (<100); Potassium 4.4 mmol/L (3.3-5.1); Sodium 142 mmol/L (135-145); Total Protein 6.8 g/dL (6.5-8.0); Triglycerides 88 mg/dL (<150)
== END 2023-12-28 08:39 | disposition home or self-care (01) ==
LOC: HO.HMGCLDS 08:38
PROVIDERS: PCP Internal Medicine; Visit Provider Internal Medicine
DX: E11.9 Type 2 diabetes mellitus without complications (principal); E78.5 Hyperlipidemia, unspecified; E66.9 Obesity, unspecified
CPT/HCPCS: 36415; 80053; 80061; 83036; 84443; 85025

== ENCOUNTER 2024-01-07 06:00 | Outpatient (REF) | payer OTHER, SELFPAY ==
[2024-01-07 11:08] LABS: Creatinine Urine 31.71 mg/dL; Microalbumin Urine < 5.0 mg/L
== END 2024-01-07 06:01 | disposition home or self-care (01) ==
LOC: HO.HMGCLNP 06:00
PROVIDERS: PCP Internal Medicine; Visit Provider Internal Medicine
DX: E11.9 Type 2 diabetes mellitus without complications (principal); E78.5 Hyperlipidemia, unspecified; E66.9 Obesity, unspecified
CPT/HCPCS: 82043; 82570

== ENCOUNTER 2024-01-07 08:29 | Outpatient (AMB) | payer OTHER, SELFPAY ==
[2024-01-07 08:35] VITALS: BP 120/78; PULSE 77; O2SAT 97; BMI 43.5
--- NOTE | 2024-01-07 08:35 | MHC.PC.OV ---
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 Accompanied by: Self / Same As Patient Allergies No Known Allergies Allergy (Verified 01/07/24 08:42) Medication List - Last Reconciled 01/07/24 by Lolly Mchuhg MD atorvastatin 40 mg PO DAILY 90 days blood-glucose meter ([employer] Media[employer] Verio Flex Start kit) As directed dulaglutide (Trulicity) 3 mg (0.5 mL) subcut QWEEK furosemide 40 mg PO DAILY metformin 1,000 mg PO BID nystatin 1 appl topical DAILY OneTouch Ultra Test (blood sugar diagnostic) twice a day NS pen needle, diabetic (BD Ultra-Fine Short Pen Needle) As directed Tobacco use date assessed: 01/07/24 Fall risk assessment: No Falls in past year Last assessed Fall Risk: 01/07/24 Dental Screening Dental Screen Date: 01/07/24 Did you have a dental problem in the last 6 months where you did not have access to dental care?: No HPI PE HPI Details Pt is for PE. PFSH Medical History DM type 2 (diabetes mellitus, type 2) Foot pain, bilateral Osteoarthritis of shoulders, bilateral Normal colonoscopy Dysuria Arthritis History of mammogram Osteoarthritis of right knee Obesity Hyperlipidemia Diabetes Surgical History History of knee replacement procedure of right knee History of hysterectomy History of knee replacement procedure of left knee H/O colonoscopy Family History Father No problems noted. Mother No problems noted. Brother No problems noted. Brother No problems noted. Sister No problems noted. Sister No problems noted. Daughter No problems noted. Social History Household Members: Family Housing: House Patient Tobacco Use Status: Current everyday Tobacco user Tobacco use type: Cigarette Cigarettes Per Day: 1 e-Cigarette/Vaping Use: Never Used service: No Current occupational status: retired Cognitive needs: No Hearing needs: No Vision needs: Yes Questionnaire PHQ-9 Over the last 2 weeks, how often have you been bothered by any of the following problems? 1. Little interest or pleasure in doing things: not at all 2. Feeling down, depressed, or hopeless: not at all 3. Trouble falling or staying asleep, or sleeping too much: not at all 4. Feeling tired or having little energy: not at all 5. Poor appetite or overeating: not at all 6. Feeling bad about yourself - or that you are a failure or have let yourself or your family down: not at all 7. Trouble concentrating on things, such as reading the newspaper or watching television: not at all 8. Moving or speaking so slowly that other people could have noticed. Or the opposite - being so fidgety or restless that you have been moving around a lot more than usual: not at all 9. Thoughts that you would be better off or of hurting yourself in some way: not at all Total score: 0 Depression Screening Interpretation: Negative Depression Screening Done: Yes [id number] - PHQ-9 Billing: Yes Source: Developed by Drs. Luis Armando Morales, Karime Green, Jann Joaquin and colleagues, with an educational denny from [employer]. Thrive Questionnaire Date Thrive assessed: 01/07/24 I am a: Parent/Caregiver What is your living situation today?: I have a steady place to live Within the past 12 months, did the food you bought not last and you didn't have the money to get more?: Never true Within the past 12 months, did you worry whether your food would run out before you got money to buy more?: Never true Do you have trouble paying for medicines?: No Do you have trouble getting transportation to medical appointments?: No Do you have trouble paying your heating and electricity bill?: No Do you have trouble taking care of your child, family member or friend?: No Do you have trouble with day-to-day activities such as bathing, preparing meals, shopping, managing finances, etc.?: No Are you currently unemployed and looking for a job?: Yes Are you interested in more education?: No Please select the resources that you would like help with: Housing/Custodial Currently or been in a relationship where the following occur: I choose not to answer THRIVE Score: 0 AUDIT C Alcohol Use Questionnaire (AUDIT-C) 1. How often do you have a drink containing alcohol?: Never 3. How often do you have six or more drinks on one occasion?: Never Total Score: 0 Score Reviewed/Action Taken: Yes GINO-7 AMB Questionnaire GINO-7 Date GINO - 7 assessed: 01/07/24 Feeling nervous, anxious, or on edge: 0 = Not at all Not being able to stop or control worryin = Not at all Worrying too much about different things: 0 = Not at all Trouble relaxin = Not at all Being so restless that it is hard to sit still: 0 = Not at all Becoming easily annoyed or irritable: 0 = Not at all Feeling afraid as if something awful might happen: 0 = Not at all Total GINO-7 score (0-4 normal; 5-9 mild; 10-14 moderate; 15-21 severe): 0 Source: Developed by Drs. Luis Armando Morales, Karime Green, Jann Joaquin and colleagues, with an educational denny from [employer]. GINO-7 Assessment Billing GINO-7 Assessment Tool: GINO-7 Assessment 23559 Review of Systems Const All systems reviewed & are unremarkable except as noted in HPI and below Eyes Reports no additional complaints ENT Reports no additional complaints Card Reports no additional complaints Resp Reports no additional complaints GI Reports no additional complaints Reports no additional complaints Physical exam (Primary Care) Vital Signs: Last Vital Signs Pulse 77 01/07/24 08:35 Pulse Ox 97 01/07/24 08:35 Oxygen Delivery Method Room Air 01/07/24 08:35 BMI result Body Mass Index 43.5 Tobacco/Smoking Status: Tobacco use Status Tobacco use date assessed 01/07/24 01/07/24 08:46 Patient Tobacco Use Status Current everyday Tobacco 01/07/24 08:36 Tobacco use type Cigarette 01/07/24 08:36 e-Cigarette/Vaping Use Never Used 01/07/24 08:36 PHQ-9: PHQ-9 Score PHQ-9: Total score 0 01/07/24 08:46 Depression Screening Interpretation: Negative Thrive Assessment: Date of Thrive Assessment Date Thrive assessed 01/07/24 01/07/24 08:46 Currently or been in a relationship where the following occur: I choose not to answer Const General: no acute distress HENMT Head: Yes normal to inspection Eyes General: appearance normal, both eyes and all related structures Neck Neck: Yes no lymphadenopathy and Yes supple Resp Effort & Inspection: normal respiratory effort Auscultation: clear to auscultation bilaterally Cardio Rhythm: regular rhythm Heart sounds: S1 normal heart sound present and S2 normal heart sound present GI Inspection: Yes normal to inspection Palpation (GI): Soft to palpation Percussion: Yes normal to percussion Auscultation: normal bowel sounds Extrem Other: 2+pitting edema b/l Assessment and Plan Assessment & Plan (1) H/O colonoscopy: Comment: 2012 Code(s): Z98.890 - Other specified postprocedural states Plan: Patient is overdue for colonoscopy will be referred to GI (2) Annual physical exam: Code(s): Z00.00 - Encounter for general adult medical examination without abnormal findings Plan: Well-balanced diet regular physical activity weight loss discussed with the patient. She declined mammogram and DEXA (3) Hyperlipidemia: Code(s): E78.5 - Hyperlipidemia, unspecified Plan: Continue statin (4) DM type 2 (diabetes mellitus, type 2): Code(s): E11.9 - Type 2 diabetes mellitus without complications Plan: A1c is 5.7, continue Trulicity and metformin, ADA diet increase exercise weight loss discussed with the patient follow-up in 6 months with a fasting labs before (5) Edema: Comment: Chronic bilateral lower extremities ymphedema Code(s): R60.9 - Edema, unspecified Plan: Continue furosemide as needed Orders: Orders Lipid Panel 6 Months E11.9 - Type 2 diabetes mellitus without complications, E78.5 - Hyperlipidemia, unspecified, Z00.00 - Encounter for general adult medical examination without abnormal findings Microalbumin, Random (w Creat) 6 Months E11.9 - Type 2 diabetes mellitus without complications, E78.5 - Hyperlipidemia, unspecified, Z00.00 - Encounter for general adult medical examination without abnormal findings Comprehensive Met. Panel 6 Months E11.9 - Type 2 diabetes mellitus without complications, E78.5 - Hyperlipidemia, unspecified, Z00.00 - Encounter for general adult medical examination without abnormal findings Hemoglobin A1c 6 Months E11.9 - Type 2 diabetes mellitus without complications, E78.5 - Hyperlipidemia, unspecified, Z00.00 - Encounter for general adult medical examination without abnormal findings Complete Blood Count Auto Diff 6 Months E11.9 - Type 2 diabetes mellitus without complications, E78.5 - Hyperlipidemia, unspecified, Z00.00 - Encounter for general adult medical examination without abnormal findings Referrals Gastroenterology Referral Z00.00 - Encounter for general adult medical examination without abnormal findings, Z98.890 - Other specified postprocedural states Coding Level of Care Code Est Pt Prev Care >65y(85899) Diagnoses H/O colonoscopy Z98.890 Annual physical exam Z00.00 Hyperlipidemia E78.5 DM type 2 (diabetes mellitus, type 2) E11.9 Edema R60.9 Additional Codes GINO-7 Assessment Billing - GINO-7 Assessment Tool: GINO-7 Assessment 18514 ([id number])
== END 2024-01-07 09:03 | disposition home or self-care (01) ==
PROVIDERS: PCP Internal Medicine; Visit Provider Internal Medicine
DX: Z00.00 Encounter for general adult medical examination without abnormal findings (principal); E11.69 Type 2 diabetes mellitus with other specified complication; Z98.890 Other specified postprocedural states; E78.5 Hyperlipidemia, unspecified; R60.9 Edema, unspecified
CPT/HCPCS: 99397

== ENCOUNTER 2024-05-22 09:18 | Outpatient (AMB) | payer OTHER, SELFPAY ==
[2024-05-22 09:21] VITALS: BP 115/69; PULSE 74; BMI 44.0
--- NOTE | 2024-05-22 09:21 | MHC.OFFVIS ---
Vital Signs 05/22/24 09:21 Height 5 ft 3 in Weight 248 lb 10.903 oz BMI 44.0 BP 115/69 Blood Pressure Location Rt brachial Position Sitting Pulse 74 Intake Visit Reasons: [place] consult Intake Note: Shauna presents in office today as a new patient for colonoscopy screening. CC: Last colonoscopy about 10 years ago at [facility]. She c/o constipation and denies other GI symptoms. Senior Back End Java Developer Required: Yes Senior Back End Java Developer Language: Andorran Creole Senior Back End Java Developer Name: Daughter Accompanied by: Daughter Allergies No Known Allergies Allergy (Verified 05/22/24 09:29) HPI HPI [place] consult: Details: 73-year-old female here for a preprocedural meeting to discuss a screening colonoscopy. She is referred by Lolly Mchugh. PMX Obesity Hearing loss High cholesterol Diabetes Chronic lower extremity edema Generalized osteoarthritis * SURGICAL HISTORY Bilateral knee replacement Hysterectomy Colonoscopy -2012, normal * Allergies: NKDA * [employer] LABS: Laboratory Tests 12/28/23 12/28/23 09:00 09:07 WBC 6.6 Hgb 11.9 L Hct 36.3 L MCV 97.3 MCH 31.9 Plt Count 237 Total Bilirubin 0.8 AST 55 H ALT 13 Alkaline Phosphatase 82 TSH 0.70 TODAY'S VISIT Reagan jacobs is interpreting per patient request She had a prior colonoscopy in 2012 that was normal. She denies any cardiac or respiratory problems. No prior problems with anesthesia or sedation. No ID problems There is no known FHX of crc or polyps in her father or mother, but her daughter had polyps. REPLACED BY [facility] Medical History (Updated 05/22/24 @ 09:37 by GABBI Light) Right knee injury Arthritis Normal colonoscopy Colonoscopy refused Annual physical exam DM type 2 (diabetes mellitus, type 2) Foot pain, bilateral Osteoarthritis of shoulders, bilateral Dysuria History of mammogram Osteoarthritis of right knee Obesity Hyperlipidemia Diabetes Surgical History (Updated 05/22/24 @ 09:37 by GABBI Light) H/O colonoscopy History of arthroplasty of right knee History of knee replacement procedure of right knee History of hysterectomy History of knee replacement procedure of left knee Family History Father No problems noted. Mother No problems noted. Brother No problems noted. Brother No problems noted. Sister No problems noted. Sister No problems noted. Daughter No problems noted. Social History Household Members: Family Housing: House Alcohol intake: never Patient Tobacco Use Status: Current everyday Tobacco user Tobacco use type: Cigarette Cigarettes Per Day: 1 e-Cigarette/Vaping Use: Never Used service: No Current occupational status: retired Cognitive needs: No Hearing needs: No Vision needs: Yes Review of Systems Const Denies fatigue, Denies fever(s), Denies night sweats, Denies poor appetite and Denies weight loss Eyes Details: glasses Reports requires corrective lenses ENT Reports Normal hearing present, Denies dental pain, Denies dysphagia, Denies hearing loss, Denies mouth pain, Denies odynophagia, Denies throat swelling, Denies tongue swelling and Reports other (Dentition adequate) Card Reports no additional complaints Resp Reports no additional complaints GI Details: Denies abdominal pain, Denies melena, Denies bloating, Denies hematochezia, Denies constipation, Denies GI cramping, Denies dysphagia, Denies excessive flatus, Denies early satiety, Denies heartburn, Denies diarrhea, Denies nausea, Denies odynophagia, Denies vomiting and Denies hematemesis Skin/Breast Denies pruritus, Denies lesions, Denies rash and Denies jaundice Neuro Reports Normal hearing present and Denies Abnormal speech present Endo Denies fatigue Aller/Immun Denies throat swelling and Denies tongue swelling Physical Exam Vital Signs: Last Vital Signs Pulse 74 05/22/24 09:21 BP 115/69 05/22/24 09:21 BMI result Body Mass Index 44.0 Const General: cooperative, no acute distress, well developed and well groomed Nutritional Appearance: well nourished and obese morbidly obese Orientation/consciousness: oriented to person, oriented to place and oriented to time Limitations: language barrier HEENT Head: Yes normocephalic and Yes atraumatic Eyes General: appearance normal, both eyes and all related structures Pupils: Equal, round and reactive pupils present Neck Neck: Yes normal visual inspection and Yes no lymphadenopathy Thyroid: Thyroid normal Resp Effort & Inspection: normal respiratory effort and able to speak in complete sentences Auscultation: clear to auscultation bilaterally Cardio Rate: regular rate Rhythm: regular rhythm Heart sounds: Normal, physiologic split S2 sound present Peripheral pulses: radial pulses present and posterior tibial pulses present GI Inspection: No distended, Yes Abdominal panniculus present and Yes obesity Palpation (GI): Soft to palpation, nontender, no guarding, not rigid and No hepatosplenomegaly present Percussion: Yes normal to percussion Auscultation: normal bowel sounds Rectal Exam - Female: deferred Abdomen image: 1. surgical scar Skin General skin exam: no rashes or lesions noted, turgor normal, skin not dry, no jaundice, No spider nevi and no striae Rashes: no rashes Nails: normal Neuro General: oriented to person, oriented to place and oriented to time Cranial nerves: Yes Equal, round and reactive pupils present and Yes Normal hearing present Speech: No Abnormal speech present Extrem General: Yes normal to inspection, No clubbing, No cyanosis, Yes edema (1+ pitting ankles bilateral) and Yes venous stasis dermatitis Psych Appearance: grossly normal and well kempt Mental Status: mental status grossly normal Speech and movement: Normal speech and movement present Affect: normal affect Attitude: cooperative Thought process: Normal thought process present and not confabulating Thought content: Normal thought content present Insight: Fair insight present (Psych) Judgement: Fair judgement present (Psych) Assessment & Plan Assessment & Plan (1) Pre-op examination: Code(s): Z01.818 - Encounter for other preprocedural examination Category: Medical (2) Hearing loss: Code(s): H91.90 - Unspecified hearing loss, unspecified ear Category: Medical Plan Creonle # daughter is interpreting per patient request She had a prior colonoscopy in 2013 that was normal. She denies any cardiac or respiratory problems. No prior problems with anesthesia or sedation. No ID problems There is no known FHX of crc or polyps in her father or mother, but her daughter had polyps Orders: Orders Colonoscopy - GI Use Only Today Z01.818 - Encounter for other preprocedural examination Medications: New peg 3350-electrolytes 236-22.74-6.74 -5.86 gram (Golytely) until fecal effluent is clear; do not exceed a total volume of 2,000 mL 240 mL PO Q10M 1 day 4,000 mL 0RF Z12.11 - Encounter for screening for malignant neoplasm of colon bisacodyl (Dulcolax (bisacodyl)) 10 mg (2 x 5 mg) PO BEDTIME 2 days 4 tabs 0RF Coding Level of Care Code New Pt Level 3 (35275) Diagnoses Pre-op examination Z01.818 Hearing loss H91.90
== END 2024-05-22 09:51 | disposition home or self-care (01) ==
PROVIDERS: PCP Internal Medicine; Visit Provider Nurse Practitioner
DX: Z01.818 Encounter for other preprocedural examination (principal); Z12.11 Encounter for screening for malignant neoplasm of colon; H91.90 Unspecified hearing loss, unspecified ear
CPT/HCPCS: 99024

== ENCOUNTER 2024-07-11 08:45 | Outpatient (REF) | payer OTHER, SELFPAY ==
--- OUTSIDE RECORDS SUMMARY | 2024-07-11 09:45 | XMS_ITS | Clinical Summary ---
Author Organization [facility] Address [address] [place] [address] Care Team Providers Care Behavioral Modification Assistant Name Role Phone Lolita Lolly Primary Care Provider [phone] Allergies No known active allergies Medications OneTouch [...] patient's age to complete this topic Insurance [facility] Care Teams Behavioral Modification Assistant Relationship Specialty Start Date End Date Lolly Mchugh [address] [place] [address] PCP - General Internal Medicine 03/30/21
--- OUTSIDE RECORDS SUMMARY | 2024-07-11 09:45 | XMS_ITS | Referral Summary ---
Author Organization [facility] Address [address] [place] [address] Care Team Providers Care Envelope Sealer Name Role Phone Lucina Mchughanna Primary Care Provider [phone] Allergies No known active allergies Medications OneTouch [...] Plan of Treatment Not on file Insurance [facility] Care Teams Envelope Sealer Relationship Specialty Start Date End Date Lolly Mchugh [address] [place] [address] PCP - General Internal Medicine 03/30/21
--- OUTSIDE RECORDS SUMMARY | 2024-07-11 09:45 | XMS_ITS | Clinical Summary ---
Author Organization [facility] Address [address] [place] [address] Care Team Providers Care Barrel Scraper Name Role Phone Ana Laura Montejo [facility] Primary Care Provider [phone] Source Comments PLEASE NOTE, if this patient [...] complication, without long-term current use of insulin ([facility]) Take 1 Tab by mouth once daily Swallow whole. Do not break, crush or chew. 30 Tab 5 8 Active metFORMIN (GLUCOPHAGE) 1,000 mg tabletIndications :Controlled type 2 diabetes mellitus without complication, without long-term current use of insulin ([facility]) Take 1 Tab by mouth 2 (two) times daily with a meal 60 Tab 2 8 Active blood sugar diagnostic (FREESTYLE LITE STRIPS) stripsIndications :Controlled type 2 diabetes mellitus without complication, without long-term current use of insulin ([facility]) Test blood glucose twice a day 100 [...] (refused vaccines there after) DM (diabetes mellitus) ([facility]) 12/30/2012 Obesity 12/30/2012 HTN (hypertension) 12/30/2012 Normal [...] by Outside Provider) Colorectal Cancer Screening 11/09/2019 [id number] ( season) 2024 Imm-Influenza (#1) 2024 03/30/2015, [...] EST Caries of enamel (incipient) Defective dental yarsani Encounter for dental examination COMP ORAL EVALUATION [...] EDT) GLYCATED HEMOGLOBIN A1C 7.0(H) <6.5 % [facility] ESTIMATED AVERAGE GLUCOSE 154 mg/dL [facility] Blood specimen (specimen) Blood / Unknown 12/28/2015 9:20 AM EDT 12/28/2015 12:46 PM EDT [facility] - 12/28/2015 7:54 PM EDT [facility] [address] [place] [address] PT ID [id number] ORD# [id number] Frandy Bartlett MD LAB - [place] [address], * LIPID PANEL (12/28/2015 9:20 AM EDT) CHOLESTEROL 144 0 - 200 mg/dL [facility] TRIGLYCERIDES 128 0 - 150 mg/dL [facility] HDL CHOLESTEROL 48 >40 mg/dL [facility] LDL CALCULATED 71 0 - 100 mg/dL [facility] TC-HDLC RATIO 3.0 0 - 4.4 mg/dL [facility] Blood specimen (specimen) Blood / Unknown 12/28/2015 9:20 AM EDT 12/28/2015 12:[address] [facility] - 12/28/2015 4:03 PM EDT [facility] [address] [place] [address] PT ID [id number] ORD# [id number] Frandy Bartlett MD LAB - BLOOD DRAW Edited Result - Final [facility] [address] [place] [address], * (ABNORMAL) BASIC METABOLIC PANEL CALCIUM TOTAL (12/28/2015 9:20 AM EDT) GLUCOSE 123(H) 70 - 100 mg/dL [facility] Comment:Reference range appl icable to fasting specimens only BUN 11 5 - 25 mg/dL [facility] CREAT 0.68 0.5 - 1.1 mg/dL [facility] GLOMERULAR FILTRATION RATE > 60 [facility] Comment: If patient is -[place]inid[place], multiply result by 1.21 Chronic Kidney Disease: < 60 ml/min/1.73 square meters Kidney Failure: < 15 ml/min/1.73 square meters SODIUM 140 133 - 145 mmol/L [facility] Comment:Note new units effective 11/16/15 POTASSIUM 4.7 3.5 - 5.5 mmol/L [facility] Comment:Note new units effective 11/16/15 CHLORIDE 105 96 - 110 mmol/L [facility] Comment:Note new units effective 11/16/15 CO2 30 21 - 32 mmol/L [facility] Comment:Note new units effective 11/16/15 ANION GAP 5 3 - 11 [facility] CALCIUM 9.0 8.5 - 10.5 mg/dL [facility] Blood specimen (specimen) Blood / Unknown 12/28/2015 9:20 AM EDT 12/28/2015 12:46 PM EDT [facility] - 12/28/2015 4:03 PM EDT [facility] [address] [place] [address] [place] [id number] ORD# [id number] Frandy Bartlett MD LAB - BLOOD DRAW Final Result [address] [address], [place] [phone] * MICROALBUMIN/CREATININE RATIO, URINE, RANDOM (03/30/2015 11:42 AM EDT) MICROALBUMIN, RANDOM 6.5 0.0 - 29.0 mg/L [facility] MICROALB/CRE RATIO RANDOM < 6.4 0.0 - 30.0 mg/G [facility] CREATININE, RANDOM URINE 101 mg/dL [facility] Urine specimen (specimen) Urine specimen / Unknown 03/30/2015 11:42 AM EDT 03/30/2015 1:50 PM EDT [facility] - 03/30/2015 2:42 PM EDT [facility] [address] [place] [address] [place] ID [id number] ORD# [id number] Frandy Bartlett MD LAB - NO BLOOD DRAW Final Resul t Performing Organization Address City/[facility]/ZIP Co de Phone Number [address] [address], [place] [phone] from Last 3 Months or Most Recently Relevant to Health Maintenance Insurance [place] [employer] Care Teams Barrel Scraper Relationship Specialty Start Date End Date Ana Laura Montejo FNP [address] [place] [id number] PCP - General 07/30/18
[2024-07-11 10:52] LABS: MANUAL DIFF FLAG NO
[2024-07-11 10:54] LABS: Estimated Average Glucose 123 mg/dL; Hemoglobin A1C 125.1826 umol/L; Hemoglobin A1c % 5.9 % (<6.0); Total Hemoglobin (HGBA1C) 3081.4695 umol/L
[2024-07-11 10:55] LABS: Basophils Percent Auto 0.5 % (0-2); Eosinophils Percent Auto 12.7 % (0-4); Hematocrit 36.4 % (37.0-47.0); Hemoglobin 12.2 g/dl (12.0-16.0); Imm Gran Abs Auto 0.03 X10*3/uL (0.00-0.03); Imm Gran Pct Auto 0.4 % (0.0-0.4); Lymphocytes Absolute Auto 2.7 X10*3/uL (1.2-4.9); Lymphocytes Percent Auto 35.3 % (20-40); Mean Corpuscular HGB Conc 33.5 g/dl (31.0-35.0); Mean Corpuscular Hemoglobin 32.4 pg (27.0-33.0); Mean Corpuscular Volume 96.8 fL (80.0-98.0); Mean Platelet Volume 10.3 fL (9.4-12.3); Monocytes Absolute Auto 0.4 X10*3/uL (0.1-1.2); Monocytes Percent Auto 5.4 % (2-11); Neutrophils Absolute Auto 3.5 x10*3/uL (2.0-8.3); Neutrophils Percent Auto 45.7 % (45-73); Platelet Count 237 X10*3/uL (160-400); Red Blood Count 3.76 X10*6/uL (4.20-5.50); Red Cell Distribution Width 13.6 % (11.0-16.0); White Blood Count 7.6 X10*3/uL (4.8-10.8)
[2024-07-11 11:40] LABS: Alanine Aminotransferase 20 U/L (0-31); Albumin Level 4.1 g/dL (3.5-5.0); Alkaline Phosphatase 75 U/L (39-117); Anion Gap 10 (12-20); Aspartate Amino Transferase 65 U/L (5-31); Bilirubin Total 0.7 mg/dL (0.0-1.0); Blood Urea Nitrogen 9 mg/dL (9-16); Calcium 9.3 mg/dL (8.4-10.2); Carbon Dioxide 27 mmol/L (22-29); Chloride 107 mmol/L (96-108); Cholesterol 104 mg/dL (<200); Estimated Glomerular Filt Rate > 60; Glucose Random 126 mg/dL (60-115); HDL Cholesterol 49 mg/dL (>40); LDL Cholesterol Calculated 42 mg/dL (<100); Potassium 4.2 mmol/L (3.3-5.1); Sodium 140 mmol/L (135-145); Triglycerides 67 mg/dL (<150)
== END 2024-07-11 08:46 | disposition home or self-care (01) ==
LOC: HO.HMGCLDS 08:45
PROVIDERS: PCP Internal Medicine; Visit Provider Internal Medicine
DX: Z00.00 Encounter for general adult medical examination without abnormal findings (principal); M25.512 Pain in left shoulder; E78.5 Hyperlipidemia, unspecified; E11.9 Type 2 diabetes mellitus without complications
CPT/HCPCS: 36415; 80053; 80061; 83036; 85025; 96127

== ENCOUNTER → 2024-07-11 08:45 | Outpatient (AMB) | payer OTHER, SELFPAY ==
--- NOTE | 2024-07-11 08:46 | A.OFFPC_ITS ---
Vital Signs 07/11/24 08:46 Height 5 ft 3 in Weight 251 lb BMI 44.5 BP 108/64 Blood Pressure Location Rt brachial Position Sitting Respiration 20 Pulse 79 Pulse Source Pulse Oximeter Temp 98.1 F Temp Source Oral Pulse Oximetry (%) 96 Oxygen Delivery Method Room Air Intake Visit Reasons: 6 month f/u Intake Note: Pt is here today for 6 months follow up visit. Allergies No Known Allergies Allergy (Verified 07/11/24 08:47) Medication List - Last Reconciled 07/11/24 by Lolly Mchugh MD atorvastatin 40 mg PO DAILY 90 days bisacodyl (Dulcolax (bisacodyl)) 10 mg (2 x 5 mg) PO BEDTIME 2 days blood-glucose meter ([employer]Touch Verio Flex Start kit) As directed dulaglutide (Trulicity) 4.5 mg (0.5 mL) subcut QWEEK dulaglutide (Trulicity) 3 mg (0.5 mL) subcut QWEEK furosemide 40 mg PO DAILY metformin 1,000 mg PO BID nystatin 1 appl topical DAILY PRN OneTouch Ultra Test (blood sugar diagnostic) twice a day NS peg 3350-electrolytes 236-22.74-6.74 -5.86 gram (Golytely) 240 mL PO Q10M 1 day pen needle, diabetic (BD Ultra-Fine Short Pen Needle) As directed Tobacco use date assessed: 07/11/24 Fall risk assessment: No Falls in past year Last assessed Fall Risk: 07/11/24 Dental Screening Dental Screen Date: 07/11/24 Did you have a dental visit in the last 12 months?: Yes Did you have a dental problem in the last 6 months where you did not have access to dental care?: Yes Was dental information given to patient?: Yes HPI 6 month f/u HPI Details Patient presents for the follow-up of type 2 diabetes hyperlipidemia morbid obesity. Patient complains of left shoulder pain when reaching overhead or trying to use it. She denies any injury weakness or numbness in left upper extremity [facility] Medical History (Updated 07/11/24 @ 09:17 by Lolly Mchugh MD) Right knee injury Arthritis Normal colonoscopy Colonoscopy refused Annual physical exam DM type 2 (diabetes mellitus, type 2) Foot pain, bilateral Osteoarthritis of shoulders, bilateral Dysuria History of mammogram Osteoarthritis of right knee Obesity Hyperlipidemia Diabetes Surgical History H/O colonoscopy History of arthroplasty of right knee History of knee replacement procedure of right knee History of hysterectomy History of knee replacement procedure of left knee Family History Father No problems noted. Mother No problems noted. Brother No problems noted. Brother No problems noted. Sister No problems noted. Sister No problems noted. Daughter No problems noted. Social History Household Members: Family Housing: House Alcohol intake: never Patient Tobacco Use Status: Current everyday Tobacco user Tobacco use type: Cigarette Cigarettes Per Day: 1 e-Cigarette/Vaping Use: Never Used service: No Current occupational status: retired Cognitive needs: No Hearing needs: No Vision needs: Yes Questionnaire PHQ-9 Over the last 2 weeks, how often have you been bothered by any of the following problems? 1. Little interest or pleasure in doing things: not at all 2. Feeling down, depressed, or hopeless: not at all 3. Trouble falling or staying asleep, or sleeping too much: not at all 4. Feeling tired or having little energy: not at all 5. Poor appetite or overeating: not at all 6. Feeling bad about yourself - or that you are a failure or have let yourself or your family down: not at all 7. Trouble concentrating on things, such as reading the newspaper or watching television: not at all 8. Moving or speaking so slowly that other people could have noticed. Or the opposite - being so fidgety or restless that you have been moving around a lot more than usual: not at all 9. Thoughts that you would be better off or of hurting yourself in some way: not at all Total score: 0 Depression Screening Interpretation: Negative Depression Screening Done: Yes 01694 - PHQ-9 Billing: Yes Source: Developed by Drs. Luis Armando Morales, Karime Green, Jann Joaquin and colleagues, with an educational denny from [employer]. Thrive Questionnaire Date Thrive assessed: 07/11/24 I am a: Patient What is your living situation today?: I have a steady place to live Within the past 12 months, did the food you bought not last and you didn't have the money to get more?: I choose not to answer this question Within the past 12 months, did you worry whether your food would run out before you got money to buy more?: I choose not to answer this question Do you have trouble paying for medicines?: No Do you have trouble getting transportation to medical appointments?: No Do you have trouble paying your heating and electricity bill?: No Do you have trouble taking care of your child, family member or friend?: No Do you have trouble with day-to-day activities such as bathing, preparing meals, shopping, managing finances, etc.?: No Are you currently unemployed and looking for a job?: I choose not to answer this question Are you interested in more education?: I choose not to answer this question Please select the resources that you would like help with: None Currently or been in a relationship where the following occur: I choose not to answer THRIVE Score: 0 AUDIT C Alcohol Use Questionnaire (AUDIT-C) 1. How often do you have a drink containing alcohol?: Never 3. How often do you have six or more drinks on one occasion?: Never Total Score: 0 GINO-7 AMB Questionnaire GINO-7 Date GINO - 7 assessed: 07/11/24 Feeling nervous, anxious, or on edge: 0 = Not at all Not being able to stop or control worryin = Not at all Worrying too much about different things: 0 = Not at all Trouble relaxin = Not at all Being so restless that it is hard to sit still: 0 = Not at all Becoming easily annoyed or irritable: 0 = Not at all Feeling afraid as if something awful might happen: 0 = Not at all Total GINO-7 score (0-4 normal; 5-9 mild; 10-14 moderate; 15-21 severe): 0 Source: Developed by Drs. Luis Armando Morales, Karime Green, Jann Joaquin and colleagues, with an educational denny from [employer]. GINO-7 Assessment Billing GINO-7 Assessment Tool: GINO-7 Assessment 16400 Review of Systems Const All systems reviewed & are unremarkable except as noted in HPI and below Eyes Reports no additional complaints ENT Reports no additional complaints Card Reports no additional complaints Resp Reports no additional complaints GI Reports no additional complaints Reports no additional complaints Physical exam (Primary Care) Vital Signs: Last Vital Signs Temp 98.1 F 07/11/24 08:46 Pulse 79 07/11/24 08:46 Resp 20 07/11/24 08:46 BP 108/64 07/11/24 08:46 Pulse Ox 96 07/11/24 08:46 Oxygen Delivery Method Room Air 07/11/24 08:46 BMI result Body Mass Index 44.5 Tobacco/Smoking Status: Tobacco use Status Tobacco use date assessed 07/11/24 07/11/24 08:49 Patient Tobacco Use Status Current everyday Tobacco 07/11/24 08:49 Tobacco use type Cigarette 07/11/24 08:49 e-Cigarette/Vaping Use Never Used 07/11/24 08:49 PHQ-9: PHQ-9 Score PHQ-9: Total score 0 07/11/24 08:52 Depression Screening Interpretation: Negative Thrive Assessment: Date of Thrive Assessment Date Thrive assessed 07/11/24 07/11/24 08:53 Currently or been in a relationship where the following occur: I choose not to answer Const General: no acute distress HENMT Head: Yes normal to inspection Eyes General: appearance normal, both eyes and all related structures Resp Effort & Inspection: normal respiratory effort Auscultation: clear to auscultation bilaterally Cardio Rhythm: regular rhythm Heart sounds: S1 normal heart sound present and S2 normal heart sound present GI Inspection: Yes normal to inspection Palpation (GI): Soft to palpation Extrem Other: There is decreased range of motion left shoulder no joint tenderness edema or erythema, 2+ pitting edema lower extremities bilaterally Coding Level of Care Code Est Pt Level 4 (55166) Diagnoses Shoulder pain, left M25.512 Hyperlipidemia E78.5 DM type 2 (diabetes mellitus, type 2) E11.9 Additional Codes GINO-7 Assessment Billing - GINO-7 Assessment Tool: GINO-7 Assessment 09239 ([id number]) PHQ-9 - 65321 - PHQ-9 Billing: Yes ([id number]) Assessment & Plan Assessment & Plan (1) Shoulder pain, left: Code(s): M25.512 - Pain in left shoulder Category: Medical Plan: Referred to physical therapy (2) Hyperlipidemia: Code(s): E78.5 - Hyperlipidemia, unspecified Category: Medical Plan: Continue statin (3) DM type 2 (diabetes mellitus, type 2): Code(s): E11.9 - Type 2 diabetes mellitus without complications Category: Medical Plan: Check A1c today, increase Trulicity to 4.5 mg continue metformin, ADA diet increase exercise weight loss discussed with the patient follow-up in 6 months Orders: Orders PT Evaluation and Treatment Today M25.512 - Pain in left shoulder Hemoglobin A1c 6 Months E11.9 - Type 2 diabetes mellitus without complications, E78.5 - Hyperlipidemia, unspecified Comprehensive [place]. Panel Fast 6 Months E11.9 - Type 2 diabetes mellitus without complications, E78.5 - Hyperlipidemia, unspecified Lipid Panel 6 Months E11.9 - Type 2 diabetes mellitus without complications, E78.5 - Hyperlipidemia, unspecified MM screening mammo BI Today Z12.31 - Encounter for screening mammogram for malignant neoplasm of breast Complete Blood Count Auto Diff 6 Months E11.9 - Type 2 diabetes mellitus without complications, E78.5 - Hyperlipidemia, unspecified Microalbumin, Random (w Creat) 6 Months E11.9 - Type 2 diabetes mellitus without complications, E78.5 - Hyperlipidemia, unspecified Medications: New dulaglutide (Trulicity) 4.5 mg (0.5 mL) subcut QWEEK 6 mL 3RF Refilled furosemide 40 mg PO DAILY 90 tabs 3RF atorvastatin 40 mg PO DAILY 90 days 90 tabs 3RF metformin 1,000 mg PO BID 180 tabs 3RF Discontinued dulaglutide (Trulicity) Discontinued Reason: Doctor's Order 3 mg (0.5 mL) subcut QWEEK 6 mL 1RF
--- OUTSIDE RECORDS SUMMARY | 2024-07-11 09:05 | XMS_ITS | Patient Health Record ---
Author Organization [facility] cassie [place] Address [address] [place] [address] Care Team Providers Care Illustrator Set Name Role Phone Lolly Mchugh MD Primary Care Provider Paras Taylor Unavailable [phone] Reason For Referral No Information Social History Tobacco Use: Social History Observation Description Date Details (start date - stop date) Current Smoker NA - NA Tobacco use other than smoking: Question Answer Notes Are you an other tobacco user? No Tobacco Control (Standard) Question Answer Notes Tobacco use: Current smoker AUDIT-C (Standard) Question Answer Notes Did you have a drink containing alcohol in the p ast year? No Points 0 Interpretation Negative Encounters Encounter Location Date Provider [facility] [address] [place] [address] 07/01/2024 Paras Alejandra Plan Of Treatment Next Appt Details Provider Name:Paras Alejandra , 09/08/2024 09:00:00 AM, [address] [address], [place], [address], Insurance Providers Payer Name Payer Address Payer Phone Subscriber Number Group Number Insured Name Patient Relationship to Insured Coverage Start Date Coverage End Date [facility] [address] [place] [id number] Shauna Littlejohn Self - patient is the insured Medical (General) History Medical History History ICD Code Arthritis Diabetic High Blood Pressure Chicken pox Joint implants/screws Transfusions dysuria Obesity Hyperlipidemia Mammogram Surgical History Surgery Date(Month/Year) hysterectomy Knee 07/2023 colonoscopy
--- OUTSIDE RECORDS SUMMARY | 2024-07-11 09:06 | XMS_ITS | Clinical Summary ---
Author Organization [facility] Address [address] [place] [address] Care Team Providers Care Lens Cleaner Name Role Phone Lolita Lolly Primary Care Provider [phone] Allergies No known active allergies Medications OneTouch Ultra test strips 1 strip by Other route once a day. 02/11/2021 Active OneTouch Verio Flex meter misc 04/27/2020 Act leo OneTouch Ultrasoft lancets 12/02/2020 Active metFORMIN (GLUCOPHAGE) 1,000 mg tablet Take 1,000 mg by mouth 2 times a day. 03/02/2021 Active atorvastatin (LIPITOR) 40 mg tablet Take 40 mg by mouth once a day. 03/02/2021 Active Family History Relation Name Status Comments Mother Social History Tobacco Use Types Packs/Day Years Used Date Smoking Tobacco: Never Assessed Alcohol Use Standard Drinks/Week Comments Not Currently 0 (1 standard drink = 0.6 oz pur e alcohol) Comments Unknown Sex and Gender Information Value Date Recorded Sex Assigned at Not on file Legal Sex Female 11:36 AM EDT Gender Identity Not on file Sexual Orientation Not on file Last Filed Vital Signs Vital Sign Reading Time Taken Comments Blood Pressure 130/85 04/07/2021 12:21 PM EDT Pulse 62 04/07/2021 12:21 PM EDT Temperature - - Respiratory Rate - - Oxygen Saturation - - Inhaled Oxygen Concentration - - Weight 110 kg (242 lb 9.6 oz) 04/07/2021 12:21 P M EDT Height 160 cm (5' 3 ) 04/07/2021 12:21 PM EDT Body Mass Index 42.97 04/07/2021 12:21 PM EDT Plan of Treatment Health Maintenance Due Date Last Done Comments Cologuard 1950 Colon Cancer Screening 1950 Colonoscopy 1950 FOBT / Fit Test 1950 Sigmoidoscopy 1950 Mammogram 1989 Osteoporosis Screening 11/18/1999 Zoster Vaccines (1 of 2) 11/18/1999 Pneumococcal Vaccine: 65+ Years (2 of 2 - PCV) 03/30/2016 03/30/2015, 02/02/2010 COVID-19 Vaccine (3 - 2023- season) 2024 11/27/2020, 11/06/2020 Influenza Vaccine (#1) 2024 9, 03/30/2015, 04/07/2014, Additional history exists Alcohol/Substance Use Screening 06/04/2024 Health Care Proxy Review 06/04/2024 RSV Vaccine (60+ years old and patients) (1 - 1-dose 75+ series) 2024 DTaP,Tdap,and Td Vaccines (2 - Td or Tdap) 12/27/2025 12/28/2015 Hepatitis B Vaccines Aged Out No long er eligible based on patient's age to complete this topic Insurance [facility] Care Teams Lens Cleaner Relationship Specialty Start Date End Date Lolly Mchugh [address] [place] [address] PCP - General Internal Medicine 03/30/21
--- OUTSIDE RECORDS SUMMARY | 2024-07-11 09:06 | XMS_ITS ---
Author Organization [facility] [address]ie [place] Address [address] [place] [address] Care Team Providers Care Ice Cream Freezer Helper Name Role Phone Lolly Mchugh MD Primary Care Provider Paras Taylor [phone] REASON FOR VISIT TWISTING FRAME FIXER PPWK Entered Encounters Encounter Location Date Provider Diagnosis [facility] [address] [place] [address] 07/01/2024 Paras Alejandra Plan Of Treatment Next Appt Details Provider Name:Paras Alejandra , 09/08/2024 09:00:00 AM, [address] [facility] [address], [place], [address], Progress Notes * Shauna LITTLEJOHNDOB:1950 (73 yo F)Acc No.[id number]:07/01/2024 Patient:?Jey LITTLEJOHNha :1950???Age:73 Y???Sex:Female Address:[facility] [place], [address] * true * Date:? Generated for Akosua doty/Katie/eTransmitting on:?07/11/2024 09:05 AM EST
--- OUTSIDE RECORDS SUMMARY | 2024-07-11 09:06 | XMS_ITS | Clinical Summary ---
Author Organization [facility] Address [address] [place] [address] Care Team Providers Care Hasher Operator Name Role Phone Ana Laura Montejo [facility] Primary Care Provider [phone] Source Comments PLEASE NOTE, if this patient is a minor, it may be UNLAWFUL to discuss sensitive information that is contained in these records (such as FAMILY PLANNING, MENTAL HEALTH or SUBSTANCE ABUSE) with the minor patient's parent or other person without the patient's specific authorization.[facility] Allergies No known active allergies Medications aspirin 81 mg chewable tabletIndications :Essential hypertension Place 1 Tab into mouth, chew and swallow once daily. 30 Tab 11 5 Active blood-glucose meter monitoring kit as needed for blood glucose monitoring. Freestyle Lite Glucometer 1 Each 0 5 Active clotrimazole-beta methasone (LOTRISONE) 1-0.05 % creamIndications: Rash Apply topically 2 (two) times daily. 15 g 1 6 Active vitamin D 2,000 unit tabletIndications :Vitamin D deficiency Take 1 Tab by mouth once daily. 30 Tab 1 6 Active glipiZIDE (GLUCOTROL XL) 5 mg ER, 24 hour tabletIndications :Controlled type 2 diabetes mellitus without complication, without long-term current use of insulin ([facility]) Take 1 Tab by mouth once daily Swallow whole. Do not break, crush or chew. 30 Tab 5 8 Active metFORMIN (GLUCOPHAGE) 1,000 mg tabletIndications :Controlled type 2 diabetes mellitus without complication, without long-term current use of insulin ([facility]) Take 1 Tab by mouth 2 (two) times daily with a meal 60 Tab 2 8 Active blood sugar diagnostic (FREESTYLE LITE STRIPS) stripsIndications :Controlled type 2 diabetes mellitus without complication, without long-term current use of insulin ([facility]) Test blood glucose twice a day 100 Each 3 8 Active atorvastatin (LIPITOR) 40 mg tabletIndications :Hypercholesterem ia TAKE 1 TABLET BY MOUTH EVERY DAY 90 Tab 1 9 Active lisinopril (PRINIVIL,ZESTRIL ) 10 mg tabletIndications :Essential hypertension TAKE 1 TABLET BY MOUTH EVERY DAY 90 Tab 1 9 Active Active Problems Problem Noted Date Diagnosed Date Microscopic hematuria 04/26/2016 Overview (04/26/2016): Work up done by urology 04/2016- CT and cystoscopy normal, no clear etiology found for hematuria, no further f/u recommended Nicotine dependence, uncomplicated 02/18/2016 Adverse reaction to vaccine 02/17/2016 Overview (02/17/2016): tdap (refused vaccines there after) DM (diabetes mellitus) ([facility]) 12/30/2012 Obesity 12/30/2012 HTN (hypertension) 12/30/2012 Normal colonoscopy 12/30/2012 Overview (12/30/2012): Done 10/08/2009 Hypercholesteremia 12/30/2012 S/P hysterectomy 12/30/2012 S/P left unicompartmental knee replacement 12/30 Osteoarthritis of both knees 12/30/2012 Overview (03/23/2015): Sees ALLISON and receiving cortisone injection Immunizations Name Administration Dates Next Due INFLUENZA, SEASONAL, INJECTABLE 03/30/2015,04/07,04/30/2013 PNEUMOCOCCAL POLYSACCHARIDE PPV23 03/30/2015,06/2009 TDAP 12/28/2015 Family History Medical History Relation Name Comments Hypertension Mother Relation Name Status Comments Father Mother Social History Tobacco Use Types Packs/Day Years Used Date Smoking Tobacco: Every Day Cigarettes Tobacco Cessation:Ready to Q uit: Yes; Counseling Given: Yes Alcohol Use Standard Drinks/Week Comments No 0 (1 standard drink = 0.6 oz pur e alcohol) Social Connections Answer Date Recorded Connectedness 0 02/20/2024 Financial Resource Strain Answer Date R ecorded Financial Resource Strain 0 2022 Stress Answer Date Recorded Stress 0 05/15/2023 Physical Activity Answer Date Recorded Physical Activity 0 05/15/2023 Food Insecurity Answer Date Recorded Food 0 02/28/2024 Transportation Needs Answer Date Record ed Transportation 0 05/15/2023 Housing Stability Answer Date Recorded Housing 0 05/15/2023 Safety and Environment Answer Date Familia rded Safety 0 05/15/2023 Utilities Answer Date Recorded Utilities 0 05/15/2023 Employment Answer Date Recorded Stress 0 02/20/2024 Comments No Sex and Gender Information Value Date Recorded Sex Assigned at Not on file Legal Sex Female 11:36 AM PDT Gender Identity Not on file Sexual Orientation Not on file Last Filed Vital Signs Vital Sign Reading Time Taken Comments Blood Pressure 160/92 02/17/2016 11:37 AM EDT Pulse 88 02/17/2016 11:37 AM EDT Temperature 36.7 ??C (98 ??F) 02/17/2016 11:37 AM EDT Respiratory Rate 16 02/17/2016 11:37 AM EDT Oxygen Saturation 98% 01/05/2016 1:19 PM EDT Inhaled Oxygen Concentration - - Weight 120.7 kg (266 lb) 02/17/2016 11:37 AM EDT Height 160 cm (5' 3 ) 02/17/2016 11:37 AM EDT Body Mass Index 47.12 02/17/2016 11:37 AM EDT Plan of Treatment Health Maintenance Due Date Last Done Comments Dental Perio Charting 1949 Dental Prophy 1949 Hepatitis B Screening 1949 Hepatitis C Screening 1949 Tobacco Screening 1949 Breast Cancer Screening (Mammogram) 1989 CT Colonography 1994 FIT/gFOBT 1994 Fecal DNA 1994 Flexible Sigmoidoscopy 1994 Imm-Zoster, Recombinant (1 of 2) 11/18/1999 Bone Density Screening 2014 Falls Prevention 2014 Diabetes Microalbumin (w/Creatinine) 03/30/2016 03/30/2015, 10/21/2013, 04/30/2013 Imm-Pneumococcal 65+ (2 of 2 - PCV) 03/30/2016 03/30/2015, 02/02/2010 Diabetes HbA1c 06/29/2016 12/28/2015, 0809/2014, 04/07/2014, Additional history exists Lipid Screening 12/27/2016 12/28/2015, 0 09/2014, 04/07/2014, Additional history exists Serum Creatinine 12/27/2016 12/28/2015, 09/2014, 04/07/2014, Additional history exists Tobacco Cessation Counseling (#1) 12/27/2016 Retinopathy Screening 02/15/2017 02/16/2016 (Managed by Outside Provider), 02/11/2015, 03/10/2014 (Managed by Outside Provider) Annual Preventive Care Visit 02/16/2017, 01/05/2015, 04/30/2013 Diabetes Foot Exam 02/16/2017 02/17/2016 Colonoscopy 11/09/2019 11/08/2009 (Katie tejada by Outside Provider) Colorectal Cancer Screening 11/09/2019 [id number] ( season) 2024 Imm-Influenza (#1) 2024 03/30/2015, 1 06/07/2013, 04/30/2013 Alcohol and Drug Screen 06/04/2024 01/05/2015 Depression Annual Screen 06/04/2024 Dental BW 06/22/2024 06/20/2023 Dental Examination 06/22/2024 06/20/2023 Imm-DTaP/Tdap/Td (2 - Td or Tdap) 12/27/2025 016 Dental FMX/Pano 06/22/2028 06/20/2023 Procedures Procedure Name Priority Date/Time Associated Diagnosis Comments INTRAORAL - COMP SERIES OF RADIOGRAPHIC IMAGES Routine 06/20/2023 1:40 PM EST Caries of enamel (incipient) Defective dental jain Encounter for dental examination COMP ORAL EVALUATION - NEW/ESTABLISHED PATIENT Routine 06/20/2023 1:40 PM EST Caries of enamel (incipient) Encounter for dental examination BASIC METABOLIC PANEL CALCIUM TOTAL Routine 12/28/2015 9:20 AM EDT Essential hypertension LIPID PANEL Routine 12/28/2015 9:20 AM EDT Hypercholesteremia HEMOGLOBIN GLYCOSYLATED A1C Routine 12/28/2015 9:20 AM EDT Controlled type 2 diabetes mellitus without complication, without long-term current use of insulin MICROALBUMIN/CREATINI NE RATIO, URINE, RANDOM Routine 03/30/2015 11:42 AM EDT Type 2 diabetes mellitus, controlled from Last 3 Months or Most Recently Relevant to Health Maintenance Results * (ABNORMAL) HEMOGLOBIN, GLYCOSYLATED (A1C) (12/28/2015 9:20 AM EDT) GLYCATED HEMOGLOBIN A1C 7.0(H) <6.5 % [facility] ESTIMATED AVERAGE GLUCOSE 154 mg/dL [facility] Blood specimen (specimen) Blood / Unknown 12/28/2015 9:20 AM EDT 12/28/2015 12:46 PM EDT [facility] - 12/28/2015 7:54 PM EDT [facility] [address] [place] [address] PT [place] [id number] ORD# [id number] Frandy Bartlett MD LAB - BLOOD [place] [address], * LIPID PANEL (12/28/2015 9:20 AM EDT) CHOLESTEROL 144 0 - 200 mg/dL [facility] TRIGLYCERIDES 128 0 - 150 mg/dL [facility] HDL CHOLESTEROL 48 >40 mg/dL [facility] LDL CALCULATED 71 0 - 100 mg/dL [facility] TC-HDLC RATIO 3.0 0 - 4.4 mg/dL [facility] Blood specimen (specimen) Blood / Unknown 12/28/2015 9:20 AM EDT 12/28/2015 12:46 PM EDT Narrative [facility] - 12/28/2015 4:03 PM EDT [facility] [address] [place] [address] PT [place] [id number] ORD# [id number] Frandy Bartlett MD LAB - BLOOD DRAW Edited Result - Final [facility] [address] [place] [address], * (ABNORMAL) BASIC METABOLIC PANEL CALCIUM TOTAL (12/28/2015 9:20 AM EDT) GLUCOSE 123(H) 70 - 100 mg/dL [facility] Comment:Reference range appl icable to fasting specimens only BUN 11 5 - 25 mg/dL [facility] CREAT 0.68 0.5 - 1.1 mg/dL [facility] GLOMERULAR FILTRATION RATE > 60 [facility] Comment: If patient is -Indian, multiply result by 1.21 Chronic Kidney Disease: < 60 ml/min/1.73 square meters Kidney Failure: < 15 ml/min/1.73 square meters SODIUM 140 133 - 145 mmol/L [facility] Comment:Note new units effective 11/16/15 POTASSIUM 4.7 3.5 - 5.5 mmol/L [facility] Comment:Note new units effective 11/16/15 CHLORIDE 105 96 - 110 mmol/L [facility] Comment:Note new units effective 11/16/15 CO2 30 21 - 32 mmol/L [facility] Comment:Note new units effective 11/16/15 ANION GAP 5 3 - 11 [facility] CALCIUM 9.0 8.5 - 10.5 mg/dL [facility] Blood specimen (specimen) Blood / Unknown 12/28/2015 9:20 AM EDT 12/28/2015 12:46 PM EDT [facility] - 12/28/2015 4:03 PM EDT [facility] [address] [place] [address] [place] [id number] ORD# [id number] Frandy Bartlett MD LAB - BLOOD DRAW Final Result [address] [address], [place] [phone] * MICROALBUMIN/CREATININE RATIO, URINE, RANDOM (03/30/2015 11:42 AM EDT) MICROALBUMIN, RANDOM 6.5 0.0 - 29.0 mg/L [facility] MICROALB/CRE RATIO RANDOM < 6.4 0.0 - 30.0 mg/G [facility] CREATININE, RANDOM URINE 101 mg/dL [facility] Urine specimen (specimen) Urine specimen / Unknown 03/30/2015 11:42 AM EDT 03/30/2015 1:50 PM EDT [facility] - 03/30/2015 2:42 PM EDT [facility] [address] [place] [address] [place] [id number] ORD# [id number] Frandy Bartlett MD LAB - NO BLOOD DRAW Final Resul t Performing Organization Address City/[facility]/ZIP Co de Phone Number [address] [address], [place] [phone] from Last 3 Months or Most Recently Relevant to Health Maintenance Insurance [place] D[employer] [place] MED[place]ID Care Teams Hasher Operator Relationship Specialty Start Date End Date Ana Laura Montejo FNP [address] [place] [id number] PCP - General 07/30/18
--- OUTSIDE RECORDS SUMMARY | 2024-07-11 09:06 | XMS_ITS | Referral Summary ---
Author Organization [facility] Address [address] [place] [address] Care Team Providers Care Oil Change Technician Name Role Phone Lucina Mchughanna Primary Care Provider [phone] Allergies No known active allergies Medications OneTouch [...] by mouth once a day. 03/02/2021 Active Social History Tobacco Use Types Packs/Day Years [...] 04/07/2021 12:21 PM EDT Plan of Treatment Not on file Insurance [facility] Care Teams Oil Change Technician Relationship Specialty Start Date End Date Lolly Mchugh [address] [place] [address] PCP - General Internal Medicine 03/30/21
== END | disposition home or self-care (01) ==
PROVIDERS: PCP Internal Medicine; Visit Provider Internal Medicine

== ENCOUNTER 2024-10-31 07:30 | Outpatient (REF) | payer OTHER, SELFPAY ==
[2024-10-31 17:07] LABS: Creatinine Urine 65.68 mg/dL; Microalbum/Creatinine Ratio Ur 13.7 ug/mg cr (<30)
== END 2024-10-31 07:31 | disposition home or self-care (01) ==
LOC: HO.HMGCLNP 07:30
PROVIDERS: PCP Internal Medicine; Visit Provider Internal Medicine
DX: Z00.00 Encounter for general adult medical examination without abnormal findings (principal); E11.9 Type 2 diabetes mellitus without complications; E78.5 Hyperlipidemia, unspecified
CPT/HCPCS: 82043; 82570

== ENCOUNTER 2024-10-31 10:46 | Outpatient (AMB) | payer OTHER, SELFPAY ==
[2024-10-31 11:25] VITALS: BP 120/82; PULSE 77; RESP 16; TEMP 36.4; O2SAT 98; BMI 44.1
--- NOTE | 2024-10-31 11:25 | A.OFFPC_ITS ---
Vital Signs 10/31/24 11:25 Height 5 ft 3 in Weight 249 lb BMI 44.1 BP 120/82 Blood Pressure Location Rt brachial Position Sitting Respiration 16 Pulse 77 Pulse Source Pulse Oximeter Temp 97.6 F Temp Source Oral Pulse Oximetry (%) 98 Oxygen Delivery Method Room Air Intake Visit Reasons: headaches and fatigue Intake Note: Pt is here today, Patient has constant headache, chills and weakness. Patient has had headache ongoing for a month and chills started sunday. Allergies No Known Allergies Allergy (Verified 10/31/24 11:32) Medication List - Last Reconciled 10/31/24 by Lolly Mchugh MD atorvastatin 40 mg PO DAILY 90 days blood-glucose meter (DataGravityTouch Verio Flex Start kit) As directed dulaglutide (Trulicity) 4.5 mg (0.5 mL) subcut QWEEK furosemide 40 mg PO DAILY metformin 1,000 mg PO BID nystatin 1 appl topical DAILY PRN OneTouch Ultra Test (blood sugar diagnostic) twice a day NS peg 3350-electrolytes 236-22.74-6.74 -5.86 gram (Golytely) 240 mL PO Q10M 1 day pen needle, diabetic (BD Ultra-Fine Short Pen Needle) As directed Tobacco use date assessed: 10/31/24 Fall risk assessment: No Falls in past year Last assessed Fall Risk: 10/31/24 Dental Screening Dental Screen Date: 10/31/24 Did you have a dental visit in the last 12 months?: No Did you have a dental problem in the last 6 months where you did not have access to dental care?: No Was dental information given to patient?: Patient has dentist HPI headaches and fatigue HPI Details Pt complains for new onset daily frontal EMMANUEL and blurred vision for a few weeks getting worse over last week. Patient denies nausea vomiting, weakness or numbness in extremities, change in balance, stiff neck or fever. She was seen by syrup mixer for conjunctivitis but has an appointment scheduled in few weeks. Type 2 diabetes is controlled on metformin and Trulicity and patient has been taking atorvastatin regular [facility] Medical History (Updated 10/31/24 @ 12:14 by Lolly Mchugh MD) Right knee injury Arthritis Normal colonoscopy Colonoscopy refused Annual physical exam DM type 2 (diabetes mellitus, type 2) Foot pain, bilateral Osteoarthritis of shoulders, bilateral Dysuria History of mammogram Osteoarthritis of right knee Obesity Hyperlipidemia Diabetes Surgical History H/O colonoscopy History of arthroplasty of right knee History of knee replacement procedure of right knee History of hysterectomy History of knee replacement procedure of left knee Family History Father No problems noted. Mother No problems noted. Brother No problems noted. Brother No problems noted. Sister No problems noted. Sister No problems noted. Daughter No problems noted. Social History Household Members: Family Housing: House Alcohol intake: never Patient Tobacco Use Status: Current everyday Tobacco user Tobacco use type: Cigarette Cigarettes Per Day: 1 e-Cigarette/Vaping Use: Never Used service: No Current occupational status: retired Cognitive needs: No Hearing needs: No Vision needs: Yes Questionnaire Thrive Questionnaire Date Thrive assessed: 07/11/24 I am a: Patient What is your living situation today?: I have a steady place to live Within the past 12 months, did the food you bought not last and you didn't have the money to get more?: I choose not to answer this question Within the past 12 months, did you worry whether your food would run out before you got money to buy more?: I choose not to answer this question Do you have trouble paying for medicines?: No Do you have trouble getting transportation to medical appointments?: No Do you have trouble paying your heating and electricity bill?: No Do you have trouble taking care of your child, family member or friend?: No Do you have trouble with day-to-day activities such as bathing, preparing meals, shopping, managing finances, etc.?: No Are you currently unemployed and looking for a job?: I choose not to answer this question Are you interested in more education?: I choose not to answer this question Please select the resources that you would like help with: None Currently or been in a relationship where the following occur: I choose not to answer THRIVE Score: 0 GINO-7 AMB Questionnaire GINO-7 Date GINO - 7 assessed: 07/11/24 Source: Developed by Drs. Luis Armando Morales, Karime Green, Jann Joaquin and colleagues, with an educational denny from [employer]. Review of Systems Const All systems reviewed & are unremarkable except as noted in HPI and below Eyes Reports no additional complaints ENT Reports no additional complaints Card Reports no additional complaints Resp Reports no additional complaints GI Reports no additional complaints Physical exam (Primary Care) Vital Signs: Last Vital Signs Temp 97.6 F 10/31/24 11:25 Pulse 77 10/31/24 11:25 Resp 16 10/31/24 11:25 BP 120/82 10/31/24 11:25 Pulse Ox 98 10/31/24 11:25 Oxygen Delivery Method Room Air 10/31/24 11:25 BMI result Body Mass Index 44.1 Tobacco/Smoking Status: Tobacco use Status Tobacco use date assessed 10/31/24 10/31/24 11:39 Patient Tobacco Use Status Current everyday Tobacco 10/31/24 11:27 Tobacco use type Cigarette 10/31/24 11:27 e-Cigarette/Vaping Use Never Used 10/31/24 11:27 Thrive Assessment: Date of Thrive Assessment Date Thrive assessed 07/11/24 10/31/24 11:27 Currently or been in a relationship where the following occur: I choose not to answer Const General: no acute distress HENMT Head: Yes normal to inspection Ears: hearing grossly normal bilaterally Throat: Yes posterior oropharynx normal Eyes General: appearance normal, both eyes and all related structures Neck Neck: Yes no lymphadenopathy and Yes supple Resp Effort & Inspection: normal respiratory effort Auscultation: clear to auscultation bilaterally Cardio Rhythm: regular rhythm Heart sounds: S1 normal heart sound present and S2 normal heart sound present GI Inspection: Yes normal to inspection Palpation (GI): Soft to palpation Neuro Cranial nerves: Yes CN's II-XII intact bilaterally Gait exam (Neuro): Wide-based gait present Motor exam (neuro): 5/5 motor strength present throughout Romberg Test: Negative Results AMB Hemoglobin A1c AMB Hemoglobin A1c 5.5 % Last Edit by Emelyn Zuñiga CMA on 10/31/24 11:53 Results Reviewed Results Reviewed: Laboratory Last Values Hgb A1c (Clinic) 5.5 % (4.0-6.0) 10/31/24 11:31 Coding Level of Care Code Est Pt Level 3 (27135) Diagnoses New onset headache R51.9 DM type 2 (diabetes mellitus, type 2) E11.9 Assessment & Plan Assessment & Plan (1) New onset headache: Code(s): R51.9 - Headache, unspecified Category: Medical Plan: For new onset headache obtain CT of the brain patient will follow-up with syrup mixer for blurred vision (2) DM type 2 (diabetes mellitus, type 2): Code(s): E11.9 - Type 2 diabetes mellitus without complications Category: Medical Plan: Continue ADA diet and current medications, A1c is 5.5 Orders: Orders CT head/brain wo IV con Today R51.9 - Headache, unspecified AMB Hemoglobin A1c Today E11.9 - Type 2 diabetes mellitus without complications Medications: Refilled atorvastatin 40 mg PO DAILY 90 days 90 tabs 3RF dulaglutide (Trulicity) 4.5 mg (0.5 mL) subcut QWEEK 6 mL 3RF furosemide 40 mg PO DAILY 90 tabs 3RF metformin 1,000 mg PO BID 180 tabs 3RF OneTouch Ultra Test (blood sugar diagnostic) twice a day 100 ea 6RF NS E11.9 - Type 2 diabetes mellitus without complications
--- OUTSIDE RECORDS SUMMARY | 2024-10-31 11:33 | XMS_ITS | Patient Health Record ---
[facility] Angelique Andrewsley Address [address] [place] [address] Care Team Providers Care Electro Plater Name Role Phone Lolly Mchugh MD Primary Care Provider Paras Taylor Unavailable [phone] Allergies No Known Allergies Results Component Value Reference Range Notes HEMOGLOBIN A1C (GLYCOHEMOGLO BIN) Reviewed date:09/08/2024 08:49:28 AM Interpretation: Performing Lab: Notes/Report: HEMOGLOBIN A1C % (HH) 5.8 Reason For Referral Diagnosis 1 Type 2 diabetes radha itus with diabetic polyneuropathy (E11.42) Referring Provider First Name Lolly Referring Provider Last Name Lolita [facility] Referred Provider Paras Alejandra Referred Address [address] [place] [address],[address],[place], [place],[address], Referred Provider Specialty Podiatry Referral Priority Routine Medications Medication SIG (Take, Route, Frequency, Duration) Notes Start Date End Date Status Trulicity Active Extra Depth Orthopedic Shoes (1 Pair) with Customized Heat Molded Multidensity Innersoles (3 Pair) as directed Dx: NIDDM/Polyneuropathy (E11.42), Hammertoe Foot Deformity (M20.41,M20.42), Preulcerative Skin Lesion(s) (L85.1 09/08/2024 Active Nystatin Active Lasix Active Lisinopril Not-Takin g Simvastatin Active metFORMIN HCl Active Furosemide Active Atorvastatin Calcium Not-Taking Social History Tobacco Use: Social History Observation Description Date Details (start date - stop date) Current Smoker 09/24/1974 - NA Tobacco use other than smoking: Question Answer Notes Are you an other tobacco user? No Tobacco Control (Standard) Question Answer Notes Tobacco use: Current smoker When did you start smoking? 09/24/1974 How often do you smoke cigarettes? Every day How many cigarettes a day do you smoke? 5 or les s How soon after you wake up d o you smoke your first cigarette? 31-60 minutes Are you interested in quitting? Not ready to junior t Additional Findings: Tobacco user Light cigarett e smoker (1-9 cigs/day) AUDIT-C (Standard) Question Answer Notes Did you have a drink containing alcohol in the p ast year? No Points 0 Interpretation Negative Problems Problem Type SNOMED Code ICD Code Onset Dates Problem Status W/U Status Risk Notes Problem Acquired hammer toe of right foot (2919835700767921 ) Other hammer toe(s) (acquired), right foot (M20.41) Active confirmed Problem Acquired hammer toe of left foot (0894682261462885 ) Other hammer toe(s) (acquired), left foot (M20.42) Active confirmed Problem Polyneuropathy due to type 2 diabetes mellitus (321864625) Type 2 diabetes mellitus with diabetic polyneuropathy (E11.42) Active confirmed Vital Signs Blood pressure diastolic 70 mm Hg 09/08/2024 Height 5ft 3in in 09/08/2024 Blood pressure systolic 127 mm Hg 09/08/2024 Weight 245 lbs 09/08/2024 BMI 43.4 kg/m2 09/08/2024 Procedures Procedure Date Ordered Date Performed Result Body Sit e 38749-PLVUOSN NAIL, 6 OR MORE 09/08/2024 N/A 85882-RELK SKIN LESIONS, 2 TO 4 09/08/2024 N/A Encounters Encounter Location Date Provider Diagnosis [facility] [address] 09/08/2024 Paras Alejandra Type 2 diabetes mellitus with diabetic polyneuropathy E11.42 ; Tinea unguium B35.1 ; Other hammer toe(s) (acquired), right foot M20.41 and Other hammer toe(s) (acquired), left foot M20.42 [facility] [place] [address] [place] [address] 07/01/2024 Paras Alejandra [facility] [place] [address] 09/12/2024 Paras Alejandra [facility] [place] [address] [place] [address] 09/18/2024 Paras Ny [facility] [address] [address] 10/15/2024 Paras Alejandra Assessments Encounter Date Diagnosis (ICD Code) Assessment Notes Treatment Notes Treatment Clinical Notes Section Notes 09/08/2024 Type 2 diabetes mellitus with diabetic polyneuropathy (ICD-10 - E11.42) 09/08/2024 Tinea unguium (ICD-10 - B35.1) 09/08/2024 Other hammer toe(s) (acquired), right foot (ICD-10 - M20.41) Patient Educated with: DIABETIC FOOT CARE INSTRUCTIONS. pdf (DIABETIC FOOT CARE INSTRUCTIONS. pdf) 09/08/2024 Other hammer toe(s) (acquired), left foot (ICD-10 - M20.42) Plan Of Treatment Pending Test Test Name Order Date 40137-DRRGPMN NAIL, 6 OR MORE 09/08/2024 52280-YBHY SKIN LESIONS, 2 TO 4 09/09/19 25 Next Appt Details Provider Name:Paras Alejandra , 12/08/2024 09:30:00 AM, [address] [facility], [place] [address], [place], [address], Insurance Providers Payer Name Payer Address Payer Phone Subscriber Number Group Number Insured Name Patient Relationship to Insured Coverage Start Date Coverage End Date [facility] [address] [place] [phone] [id number] Shauna Littlejohn Self - patient is the insured Medical (General) History Medical History History ICD Code Arthritis Diabetic High Blood Pressure Chicken pox Joint implants/screws Transfusions dysuria Obesity Hyperlipidemia Mammogram Surgical History Surgery Date(Month/Year) hysterectomy Knee 07/2023 colonoscopy
== END 2024-10-31 12:17 | disposition home or self-care (01) ==
LOC: HO.HMCC 10:47
PROVIDERS: PCP Internal Medicine; Visit Provider Internal Medicine
DX: R51.9 Headache, unspecified (principal); E11.9 Type 2 diabetes mellitus without complications

== ENCOUNTER → 2024-10-31 10:46 | Outpatient (BNVA) | payer OTHER, SELFPAY | PROVIDERS: PCP Internal Medicine; Visit Provider Internal Medicine | DX: E11.9 Type 2 diabetes mellitus without complications (principal); R51.9 Headache, unspecified; H53.8 Other visual disturbances; Z79.84 Long term (current) use of oral hypoglycemic drugs; Z79.899 Other long term (current) drug therapy | CPT/HCPCS: 83036 ==

== ENCOUNTER 2024-11-07 08:41 | Outpatient (REF) | payer OTHER, SELFPAY ==
--- NOTE | ~2024-11-07 | MM_ITS ---
EXAMINATION: MM SCREENING DIGITAL BREAST TOMOSYNTHESIS, BILATERAL CLINICAL INFORMATION: Screening. Asymptomatic. COMPARISON: Mammography: Baseline. TECHNIQUE: Digital breast mammography with tomosynthesis is performed in both the craniocaudal and mediolateral oblique views along with computer-aided detection (CAD). FINDINGS: There are scattered areas of fibroglandular density (ACR BI-RADS breast composition Category b). There are no significant masses, abnormal calcifications, or other abnormalities. MM/MM tomosynthesis screening BI IMPRESSION: No mammographic evidence of malignancy. ASSESSMENT: BI-RADS BI-RADS 1 - Negative RECOMMENDATION: Routine annual mammography screening. 1 year F/U This examination should not preclude the clinical evaluation of a suspicious palpable abnormality. This patient's information was entered into a reminder system with a target due date for their next mammogram. Electronically signed by: Hermelinda Sinclair DO 11/11/2024 05:50 PM EDT
--- OUTSIDE RECORDS SUMMARY | 2024-11-07 08:55 | XMS_ITS | Patient Health Record ---
[facility] Angelique Andrews[facility] Address [address] [place] [place] [address] Care Team Providers Care Family Practice Nurse Practitioner Name Role Phone Lolly Mchugh MD Primary Care Provider Paras Taylor Unavailable [phone] Allergies No Known Allergies Results Component Value Reference Range Notes HEMOGLOBIN A1C (GLYCOHEMOGLO BIN) Reviewed date:09/08/2024 08:49:28 AM Interpretation: Performing Lab: Notes/Report: HEMOGLOBIN A1C % (HH) 5.8 Reason For Referral Diagnosis 1 Type 2 diabetes radha itus with diabetic polyneuropathy (E11.42) Referring Provider First Name Lolly Referring Provider Last Name Lolita [facility] Referred Provider Paras Alejandra Referred Address [address] [place] [address],[address],[place], [place],[address], Referred Provider Specialty Podiatry Referral Priority Routine [...] Problem Acquired hammer toe of right foot ([id number] ) Other hammer toe(s) (acquired), right foot (M20.41) Active confirmed Problem Acquired hammer toe of left foot (9668568666887972 ) Other hammer toe(s) (acquired), left foot (M20.42) Active confirmed Problem Polyneuropathy due to type 2 diabetes mellitus (454519471) Type 2 diabetes mellitus with diabetic polyneuropathy (E11.42) Active confirmed Vital Signs Blood pressure diastolic 70 mm Hg 09/08/2024 Height 5ft 3in in 09/08/2024 Blood pressure systolic 127 mm Hg 09/08/2024 Weight 245 lbs 09/08/2024 BMI 43.4 kg/m2 09/08/2024 Procedures Procedure Date Ordered Date Performed Result Body Sit e 99404-PMWYEUS NAIL, 6 OR MORE 09/08/2024 N/A 33887-FOYP SKIN LESIONS, 2 TO 4 09/08/2024 N/A Encounters Encounter Location Date Provider Diagnosis [facility] [address] 09/08/2024 Paras Alejandra Type 2 diabetes mellitus with diabetic polyneuropathy E11.42 ; Tinea unguium B35.1 ; Other hammer toe(s) (acquired), right foot M20.41 and Other hammer toe(s) (acquired), left foot M20.42 [facility] [place] [address] [place] [address] 07/01/2024 Paras Alejandra [facility] [place] [address] 09/12/2024 Paras Alejandra [facility] [place] [address] [place] [address] 09/18/2024 Paras Ny [facility] [address] [address] 10/15/2024 Paras Alejandra Assessments Encounter Date Diagnosis [...] Treatment Pending Test Test Name Order Date 15859-UWYGNYN NAIL, 6 OR MORE 09/08/2024 00348-VOYL SKIN LESIONS, 2 TO 4 09/09/19 25 Next Appt Details Provider Name:Paras Alejandra , 12/08/2024 09:30:00 AM, [address] [facility], [place] [address], [place], [address], Insurance Providers Payer Name Payer Address Payer Phone Subscriber Number Group Number Insured Name Patient Relationship to Insured Coverage Start Date Coverage End Date [facility] [address] [place] [phone] [id number] Shauna Littlejohn Self - patient is the insured Medical (General) History Medical History History ICD Code Arthritis Diabetic High Blood Pressure Chicken pox Joint implants/screws Transfusions dysuria Obesity Hyperlipidemia Mammogram Surgical History Surgery Date(Month/Year) hysterectomy Knee 07/2023 colonoscopy
== END 2024-11-07 08:42 | disposition home or self-care (01) ==
LOC: HO.MAMMO 08:41
PROVIDERS: PCP Internal Medicine; Visit Provider Internal Medicine
DX: Z12.31 Encounter for screening mammogram for malignant neoplasm of breast (principal)
CPT/HCPCS: 77063; 77067

== ENCOUNTER → 2024-11-07 08:45 | Outpatient (BNV) | payer OTHER, SELFPAY | PROVIDERS: PCP Internal Medicine; Visit Provider Internal Medicine | DX: Z12.31 Encounter for screening mammogram for malignant neoplasm of breast (principal) | CPT/HCPCS: 77063; 77067 ==

== ENCOUNTER 2024-11-12 06:58 | Outpatient (REF) | payer OTHER, SELFPAY ==
--- NOTE | ~2024-11-12 | CT_ITS ---
EXAMINATION: CT HEAD WITHOUT IV CONTRAST HISTORY: R51.9 - Headache, unspecified. TECHNIQUE: Unenhanced helical CT of the head was performed per standard departmental protocol. Coronal and sagittal reformats of the head were also evaluated. One or more of the following techniques was used for dose reduction: Automated exposure control, adjustment of the mA and/or kV according to patient size, use of iterative reconstruction technique. DLP: 734 mGy-cm COMPARISON: There are no prior studies available for comparison. FINDINGS: BRAIN: There is mild prominence of the ventricular system and cortical sulci, consistent with atrophy. Periventricular and subcortical white matter hypodensities are noted which are nonspecific, but often seen in the setting of small vessel ischemic disease. There is no mass effect or midline shift. No intra- or extra-axial fluid collections are identified. A 1.5 cm calcified structure is seen along the right sphenoid bone compatible with a meningioma. SINUSES: The visualized paranasal sinuses are clear. The mastoid air cells and middle ear cavities are well pneumatized. ORBITS: The visualized orbits are unremarkable. BONES/SOFT TISSUES: The extracranial soft tissues are unremarkable. The calvarium is intact. No suspicious lytic or sclerotic lesions. 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 No evidence of intracranial hemorrhage. Electronically signed by: Luis Armando Tamayo MD 11/12/2024 09:30 AM EDT
== END 2024-11-12 06:59 | disposition home or self-care (01) ==
LOC: HO.CT 06:58
PROVIDERS: PCP Internal Medicine; Visit Provider Internal Medicine
DX: R51.9 Headache, unspecified (principal)
CPT/HCPCS: 70450

== ENCOUNTER → 2024-11-12 07:00 | Outpatient (BNV) | payer OTHER, SELFPAY | PROVIDERS: PCP Internal Medicine; Visit Provider Radiology Diagnostic Radiology | DX: D32.0 Benign neoplasm of cerebral meninges (principal) | CPT/HCPCS: 70450 ==

== ENCOUNTER 2024-12-03 07:22 | Day surgery (SDC) | payer OTHER, SELFPAY ==
--- OUTSIDE RECORDS SUMMARY | 2024-11-04 10:14 | XMS_ITS | Patient Health Record ---
[facility] Angel[facility] Andrews[facility] Address [address] [facility] [place] [address] Care Team Providers Care Division Sales Manager Name Role Phone Lolly Mchugh MD Primary Care Provider Paras Taylor Unavailable [phone] Allergies No Known Allergies Results Component Value Reference Range Notes HEMOGLOBIN A1C (GLYCOHEMOGLO BIN) Reviewed date:09/08/2024 08:49:28 AM Interpretation: Performing Lab: Notes/Report: HEMOGLOBIN A1C % (HH) 5.8 Reason For Referral Diagnosis 1 Type 2 diabetes radha itus with diabetic polyneuropathy (E11.42) Referring Provider First Name Lolly Referring Provider Last Name Lolita [facility] Referred Provider Paras Alejandra Referred Address [address] [place] [address],[address],[place], [place],[address], Referred Provider Specialty Podiatry Referral Priority Routine [...] Problem Acquired hammer toe of right foot ([id number] ) Other hammer toe(s) (acquired), right foot (M20.41) Active confirmed Problem Acquired hammer toe of left foot (9859590345626776 ) Other hammer toe(s) (acquired), left foot (M20.42) Active confirmed Problem Polyneuropathy due to type 2 diabetes mellitus (760581101) Type 2 diabetes mellitus with diabetic polyneuropathy (E11.42) Active confirmed Vital Signs Blood pressure diastolic 70 mm Hg 09/08/2024 Height 5ft 3in in 09/08/2024 Blood pressure systolic 127 mm Hg 09/08/2024 Weight 245 lbs 09/08/2024 BMI 43.4 kg/m2 09/08/2024 Procedures Procedure Date Ordered Date Performed Result Body Sit e 52473-UMUUMOJ NAIL, 6 OR MORE 09/08/2024 N/A 52129-ATFX SKIN LESIONS, 2 TO 4 09/08/2024 N/A Encounters Encounter Location Date Provider Diagnosis [facility] [address] 09/08/2024 Paras Alejandra Type 2 diabetes mellitus with diabetic polyneuropathy E11.42 ; Tinea unguium B35.1 ; Other hammer toe(s) (acquired), right foot M20.41 and Other hammer toe(s) (acquired), left foot M20.42 [facility] [place] [address] [place] [address] 07/01/2024 Paras Alejandra [facility] [place] [address] 09/12/2024 Paras Alejandra [facility] [place] [address] [place] [address] 09/18/2024 Paras Ny [facility] [address] [address] 10/15/2024 Paras Alejandra Assessments Encounter Date Diagnosis [...] Treatment Pending Test Test Name Order Date 60033-MLPGZWE NAIL, 6 OR MORE 09/08/2024 75989-LYLW SKIN LESIONS, 2 TO 4 09/09/19 25 Next Appt Details Provider Name:Paras Alejandra , 12/08/2024 09:30:00 AM, [address] [facility], [place] [address], [place], [address], Insurance Providers Payer Name Payer Address Payer Phone Subscriber Number Group Number Insured Name Patient Relationship to Insured Coverage Start Date Coverage End Date [facility] [address] [place] [phone] [id number] Shauna Littlejohn Self - patient is the insured Medical (General) History Medical History History ICD Code Arthritis Diabetic High Blood Pressure Chicken pox Joint implants/screws Transfusions dysuria Obesity Hyperlipidemia Mammogram Surgical History Surgery Date(Month/Year) hysterectomy Knee 07/2023 colonoscopy
[2024-12-01 14:50] VITALS: BMI 44.1
--- NOTE | 2024-12-02 09:19 | HO.ANESPROP2 ---
Documented by User: Ruby Condon NP 12/02/24 09:19 HPI - Anesthesia Eval Consult details Narrative: 74yo F for Colonoscopy Anesthesia Pre-Procedure Meds Is the patient on any of the following meds?: GLP1/DPP4 PMFSH Active Problems Active Problems: All Active Problems New onset headache (Acute) Shoulder pain, left (Acute) Pre-op examination (Acute) Edema (Acute) Epistaxis (Acute) Hearing loss (Acute) Vaginal candidiasis (Acute) Fungal infection of toenail (Acute) Osteoarthritis, knee (Acute) Skin lesion (Acute) Obesity (Acute) DM type 2 (diabetes mellitus, type 2) (Acute) Foot pain, bilateral (Acute) Osteoarthritis of shoulders, bilateral (Acute) Dysuria (Acute) Hyperlipidemia (Acute) Past Medical History Medical History Right knee injury Arthritis Normal colonoscopy Annual physical exam DM type 2 (diabetes mellitus, type 2) Foot pain, bilateral Osteoarthritis of shoulders, bilateral Dysuria History of mammogram Osteoarthritis of right knee Obesity Hyperlipidemia Diabetes Family History Family History Father No problems noted. Mother No problems noted. Brother No problems noted. Brother No problems noted. Sister No problems noted. Sister No problems noted. Daughter No problems noted. Surgical History Surgical History H/O colonoscopy History of arthroplasty of right knee History of knee replacement procedure of right knee History of hysterectomy History of knee replacement procedure of left knee Social History Social History Household Members: Family Housing: House Are you a primary critical care clinical nurse specialist to a significant other at home: No Do you presently have visiting nurse or other home services: No Alcohol intake: never Patient Tobacco Use Status: Current everyday Tobacco user Tobacco use type: Cigarette Cigarettes Per Day: 1 e-Cigarette/Vaping Use: Never Used Use of substances other than those prescribed or required for medical reasons: No Have you been hit, kicked, punched, or otherwise hurt by someone within the past year? If so, by whom?: No Are you DNR?: No Advance Directives: No Advance Directives Information Provided: Yes Poor oral hygiene: No service: No Current occupational status: retired Cognitive needs: No Hearing needs: No Vision needs: Yes Meds Allergies Allergy/AdvReac Type Severity Reaction Status Date / Time No Known Allergies Allergy Verified 12/03/24 07:34 Home Medications ?Medication ?Instructions ?Recorded ?Confirmed ?Last Taken ?Type pen needle, diabetic 31 gauge x #1,200 ea 03/05/20 10/31/24 Unknown History 5/16 (BD Ultra-Fine Short Pen Needle) nystatin 100,000 unit/gram topical 1 appl topical DAILY PRN oral 05/22/24 12/01/24 Unknown History cream irritation Exam Height,Weight and Vital Signs: Height 5 ft 3 in Weight 112.945 kg Assessment and Plan Assessment Anesthesia Assessment: Chart Reviewed Documented by User: Lisa Mchugh MD 12/03/24 08:37 [facility] Past Medical History Medical History Right knee injury Arthritis Normal colonoscopy Annual physical exam DM type 2 (diabetes mellitus, type 2) Foot pain, bilateral Osteoarthritis of shoulders, bilateral Dysuria History of mammogram Osteoarthritis of right knee Obesity Hyperlipidemia Diabetes Family History Family History Father No problems noted. Mother No problems noted. Brother No problems noted. Brother No problems noted. Sister No problems noted. Sister No problems noted. Daughter No problems noted. Surgical History Surgical History H/O colonoscopy History of arthroplasty of right knee History of knee replacement procedure of right knee History of hysterectomy History of knee replacement procedure of left knee History of Problems with Anesthesia: No Social History Social History Household Members: Family Housing: House Are you a primary critical care clinical nurse specialist to a significant other at home: No Do you presently have visiting nurse or other home services: No Alcohol intake: never Patient Tobacco Use Status: Current everyday Tobacco user Tobacco use type: Cigarette Cigarettes Per Day: 1 e-Cigarette/Vaping Use: Never Used Use of substances other than those prescribed or required for medical reasons: No Have you been hit, kicked, punched, or otherwise hurt by someone within the past year? If so, by whom?: No Are you DNR?: No Advance Directives: No Advance Directives Information Provided: Yes Poor oral hygiene: No service: No Current occupational status: retired Cognitive needs: No Hearing needs: No Vision needs: Yes Meds Allergies Allergy/AdvReac Type Severity Reaction Status Date / Time No Known Allergies Allergy Verified 12/03/24 07:34 Home Medications ?Medication ?Instructions ?Recorded ?Confirmed ?Last Taken ?Type pen needle, diabetic 31 gauge x #1,200 ea 03/05/20 10/31/24 Unknown History 10/17 (BD Ultra-Fine Short Pen Needle) nystatin 100,000 unit/gram topical 1 appl topical DAILY PRN oral 05/22/24 12/01/24 Unknown History cream irritation Exam Airway Mallampati Class: III TM Dist: >3cm Neck ROM: Limited Loose/Missing/Broken Teeth: No Heart: RRR Lungs: CTA Assessment and Plan Assessment Anesthesia Assessment: Anesthesia Plan Discussed Final Anesthetic Review History of Problems with Anesthesia: No NPO: Yes ASA Class: III Final Preanesthetic Review: Meds/Allgs Chart Reviewed, Consent Obtained/Reviewed and Anes Risks/Benef Reviewed Patient Risk: Intermediate Procedure Risk: Low Anesthetic Plan Anesthetic Plan: MAC: Disposition: Standard PACU
[2024-12-03 07:45] VITALS: BP 131/75; PULSE 69; RESP 16; TEMP 36.7; O2SAT 98; BMI 43.9
[2024-12-03] MEDS: Lactated Ringers 1,000 ML 100 ML IVCONT (07:59)
[2024-12-03 08:00] LABS: Glucose, Whole Blood 116 mg/dL (60-115)
--- NOTE | 2024-12-03 08:37 | MHC.SHP ---
Pre-Procedural Eval Section A - 24 Hr Update-Section A only Date of Service: 12/03/24 Section B - Complete if H&P > 30 days Chief Complaint: screening Relevant Family History (Specify if Yes): No Relevant Social History: Tobacco Use Present Medications: see Short Stay Collaborative assessment Medical History: Significant History (Right knee injury Arthritis Normal colonoscopy Annual physical exam DM type 2 (diabetes mellitus, type 2) Foot pain, bilateral Osteoarthritis of shoulders, bilateral Dysuria History of mammogram Osteoarthritis of right knee Obesity Hyperlipidemia Diabetes) History of Previous Operations: Relevant previous surgery/procedure and date(s) ( H/O colonoscopy History of arthroplasty of right knee History of knee replacement procedure of right knee History of hysterectomy History of knee replacement procedure of left knee) Allergies: Allergies Allergy/AdvReac Type Severity Reaction Status Date / Time No Known Allergies Allergy Verified 12/03/24 07:34 Review of Systems Sugical H&P ROS: Negative: Constitution, Cardiovascular, Respiratory, Neurological, Psychiatric, Hem-Onc, Allergic/Immunologic, Gastrointestinal, Genitourinary, Musculoskeletal, Integumentary, Endocrine and Eyes/Ears/Nose/Throat Exam Surgical H&P Exam: Normal: HEENT, Normal: Heart, Normal: Lungs, Normal: Extremities, Normal: Abdomen, Normal: Skin and Normal: Neurological Plan Diagnosis/Plan: Unchanged I have reviewed the history and physical and performed a pertinent physical examination on my patient. No changes have occurred unless specified. Time Spent With Patient Time: Total time managing care of this patient today ____ minutes.
--- NOTE | 2024-12-03 09:08 | HO.OPN-COLON ---
Colonoscopy Operative Note Operative Note Date of Service: 12/03/24 Narrative: Operative Information Procedure Description: Colonoscopy Indication: screening Anesthesia: MAC COLONOSCOPY Instrument: Olympus variable stiffness pediatric scope 190L Colonoscopy Monitoring: Vital signs and clinical assessment, continuous EKG monitoring, Pulse oximetry, Carbon Dioxide monitoring and blood pressure monitoring were done throughout the procedure. Colon withdrawal time was 10 minutes. Procedure: The patient was placed in the left lateral decubitis position and pre-procedure medications were administered. After a digital rectal examination of the ano-rectum, the video colonoscope was inserted into the rectum and advanced through the colon to the cecum/TI. The colonoscope was slowly withdrawn in a retrograde panoramic fashion and the colon mucosa was carefully examined including a retroflexed view of the rectum. Findings and interventions are described below. Procedure Difficulty: moderate Findings: Terminal Ileum-not intubated Cecum:normal Ascending Colon: x 4 sessile polyps 4-6 mm removed with cold forceps Transverse Colon - x 1 sessile polyp 4-6 mm removed with cold forceps and x 1 sessile polyp 6-8 mm removed with cold snare Descending Colon:normal Sigmoid Colon: normal Rectum: Retroflexion with small internal hemorrhoids seen, grade I Anorectum - normal Intervention: codl snare and cold forceps Colon preparation: [place] Bowel Preparation Scale Right colon; 1-2 Transverse colon: 1-2 Left colon; 1-2 (0 = Unprepared colon segment with mucosa not seen due to solid stool that cannot be cleared. 1 = Portion of mucosa of the colon segment seen, but other areas of the colon segment not well seen due to staining, residual stool and/or opaque liquid. 2 = Minor amount of residual staining, small fragments of stool and/or opaque liquid, but mucosa of colon segment seen well. 3 = Entire mucosa of colon segment seen well with no residual staining, small fragments of stool or opaque liquid) Impression and Post Procedure Diagnosis: colon polyps x 6 internal hemorrhoids Plan: High fiber diet leaflet Avoid straining at stool, epsom salts and sitz bath, anusol supps or cream Repeat Colonoscopy in 6-12 months or earlier if clinically indicated --next time maybe use colowrap and consider 1 week of miralax BID before hand with daily dulcolax 10 mg daily Above findings were reviewed with the patient and relevant handouts were provided if indicated.
[2024-12-03 09:13] VITALS: BP 120/66; PULSE 72; RESP 18; TEMP 36.4; O2SAT 100
[2024-12-03 09:28] VITALS: BP 138/83; PULSE 73; RESP 16; TEMP 36.9; O2SAT 97
--- NOTE | 2024-12-03 10:13 | PC.NURSE ---
COMBINATION PRESSER USED, DEIDRE CARDENAS #[id number].
== END 2024-12-03 10:07 | disposition home or self-care (01) ==
PROVIDERS: PCP Internal Medicine; Visit Provider Internal Medicine Gastroenterology
PROC: 0DJD8ZZ Inspection of Lower Intestinal Tract, Via Natural or Artificial Opening Endoscopic (ICD-10-PCS; CPT 45378; principal; 2024-12-03 08:30)
DX: Z12.11 Encounter for screening for malignant neoplasm of colon (principal); Z83.719 Family history of colon polyps, unspecified; D12.2 Benign neoplasm of ascending colon; D12.3 Benign neoplasm of transverse colon; K64.0 First degree hemorrhoids; E66.9 Obesity, unspecified; Z68.41 Body mass index [BMI] 40.0-44.9, adult; E78.00 Pure hypercholesterolemia, unspecified; E11.9 Type 2 diabetes mellitus without complications; R30.0 Dysuria; M17.11 Unilateral primary osteoarthritis, right knee; Z96.653 Presence of artificial knee joint, bilateral; M19.012 Primary osteoarthritis, left shoulder; M19.011 Primary osteoarthritis, right shoulder; M79.672 Pain in left foot; M79.671 Pain in right foot; R60.0 Localized edema; H91.90 Unspecified hearing loss, unspecified ear; Z79.899 Other long term (current) drug therapy; F17.210 Nicotine dependence, cigarettes, uncomplicated
CPT/HCPCS: 45385; 45380; 82947; 88305; J2003; J2704

== ENCOUNTER → 2024-12-03 07:22 | Outpatient (BNV) | payer OTHER, SELFPAY | PROVIDERS: PCP Internal Medicine; Visit Provider Internal Medicine Gastroenterology | DX: Z12.11 Encounter for screening for malignant neoplasm of colon (principal); D12.2 Benign neoplasm of ascending colon; D12.3 Benign neoplasm of transverse colon; K64.0 First degree hemorrhoids | CPT/HCPCS: 45380; 45385 ==

== ENCOUNTER 2025-01-21 11:29 | Outpatient (REF) | payer OTHER, SELFPAY ==
--- OUTSIDE RECORDS SUMMARY | 2025-01-21 12:48 | XMS_ITS | Clinical Summary ---
Author Organization [facility] Address [address] [place] [address] Care Team Providers Care Food Packer Name Role Phone Harshajulietafelix Lolly Primary Care Provider [phone] Allergies No known active allergies Medications OneTouch [...] FOBT / Fit Test 1950 Sigmoidoscopy 1950 Osteoporosis Screening 11/18/1999 Zoster Vaccines (1 of 2) 11/18/1999 Pneumococcal Vaccine: 50+ Years (2 of 2 - PCV) 03/30/2016 03/30/2015, 02/02/2010 COVID-19 Vaccine (3 - season) 2024 11/27/2020, 11/06/2020 Alcohol/Substance Use Screening 06/04/2024 Health Care Proxy Review 06/04/2024 RSV Vaccine (60+ years old and patients) (1 - 1-dose 75+ series) 2024 Influenza Vaccine (#1) 2025 9, 03/30/2015, 04/07/2014, Additional history exists DTaP,Tdap,and Td Vaccines (2 - Td or Tdap) 12/27/2025 12/28/2015 Hepatitis B Vaccines Aged Out No long er eligible based on patient's age to complete this topic Insurance [facility] Care Teams Food Packer Relationship Specialty Start Date End Date Lolly Mchugh [address] [place] [address] PCP - General Internal Medicine 03/30/21
--- OUTSIDE RECORDS SUMMARY | 2025-01-21 12:48 | XMS_ITS | Patient Health Record ---
Author Organization [facility] Angelique cassie [place] Address [address] [place] [id number] Care Team Providers Care Seafood Team Member Name Role Phone Lolly Mchugh MD Primary Care Provider Yusufa Paras Quintana Unavailable [phone] Allergies No Known Allergies Results Component Value Reference Range Notes HEMOGLOBIN A1C (GLYCOHEMOGLO BIN) Reviewed date:09/08/2024 08:49:28 AM Interpretation: Performing Lab: Notes/Report: HEMOGLOBIN A1C % (HH) 5.8 HEMOGLOBIN A1C (GLYCOHEMOGLO BIN) Reviewed date:12/08/2024 09:20:26 AM Interpretation: Performing Lab: Notes/Report: HEMOGLOBIN A1C % (HH) 5.5 Reason For Referral Diagnosis 1 Type 2 diabetes radha itus with diabetic polyneuropathy (E11.42) Referring Provider First Name Lolly Referring Provider Last Name Lolita Referred Organization [facility] Referred Provider Paras Alejandra Referred Address [address] [place] [address],[facility] [address] [place] [id number], Referred Provider Specialty Podiatry Referral Priority Routine Medications Medication SIG (Take, Route, Frequency, Duration) Notes Start Date End Date Status Extra Depth Orthopedic Shoes (1 Pair) with Customized Heat Molded Multidensity Innersoles (3 Pair) as directed Dx: NIDDM/Polyneuropathy (E11.42), Hammertoe Foot Deformity (M20.41,M20.42), Preulcerative Skin Lesion(s) (L85.1 09/08/2024 Active Trulicity Active Lisinopril Not-Takin g Atorvastatin Calcium Not-Taking Simvastatin Active metFORMIN HCl Active Nystatin Active Lasix Active Furosemide Active Social History Tobacco Use: Social History Observation [...] Problem Acquired hammer toe of right foot (6436153994782790 ) Other hammer toe(s) (acquired), right foot (M20.41) Active confirmed Problem Acquired hammer toe of left foot (1743490944542953 ) Other hammer toe(s) (acquired), left foot (M20.42) Active confirmed Problem Polyneuropathy due to type 2 diabetes mellitus (523704830) Type 2 diabetes mellitus with diabetic polyneuropathy (E11.42) Active confirmed Vital Signs Blood pressure diastolic 70 mm Hg 12/08/2024 Height 5ft 3in in 12/08/2024 Blood pressure systolic 130 mm Hg 12/08/2024 Weight 248 lbs 12/08/2024 BMI 43.93 kg/m2 12/08/2024 Procedures Procedure Date Ordered Date Performed Result Body Sit e 46179-OJSRHPM NAIL, 6 OR MORE 09/08/2024 N/A 40006-GCIQ SKIN LESIONS, 2 TO 4 09/08/2024 N/A 75150-VSXDCCR NAIL, 6 OR MORE 12/08/2024 N/A 70238-SBWX SKIN LESIONS, 2 TO 4 12/08/2024 N/A Encounters Encounter Location Date Provider Diagnosis [facility] [address] [address] 09/08/2024 Paras Alejandra Type 2 diabetes mellitus with diabetic polyneuropathy E11.42 ; Tinea unguium B35.1 ; Other hammer toe(s) (acquired), right foot M20.41 and Other hammer toe(s) (acquired), [facility] foot M20.42 [facility] [address] [place] [phone] 12/08/2024 Paras Alejandra Type 2 diabetes mellitus with diabetic polyneuropathy E11.42 ; Tinea unguium B35.1 ; Other hammer toe(s) (acquired), right foot M20.41 and Other hammer toe(s) (acquired), left foot M20.[address] [address] 07/01/2024 Paras Ny [address] [address] 09/12/2024 Parasmarcus Alejandra [address] [address] 09/18/2024 Paras Ny [address] [address] 10/15/2024 Paras Alejandra Assessments Encounter Date Diagnosis (ICD Code) Assessment Notes Treatment Notes Treatment Clinical Notes Section Notes 09/08/2024 Type 2 diabetes mellitus with diabetic polyneuropathy (ICD-10 - E11.42) 09/08/2024 Tinea unguium (ICD-10 - B35.1) 12/08/2024 Type 2 diabetes mellitus with diabetic polyneuropathy (ICD-10 - E11.42) 12/08/2024 Tinea unguium (ICD-10 - B35.1) 09/08/2024 Other hammer toe(s) (acquired), right foot (ICD-10 - M20.41) Patient Educated with: DIABETIC FOOT CARE INSTRUCTIONS. pdf (DIABETIC FOOT CARE INSTRUCTIONS. pdf) 12/08/2024 Other hammer toe(s) (acquired), right foot (ICD-10 - M20.41) 12/08/2024 Other hammer toe(s) (acquired), left foot (ICD-10 - M20.42) 09/08/2024 Other hammer toe(s) (acquired), left foot (ICD-10 - M20.42) Plan Of Treatment Pending Test Test Name Order Date [id number]-[id number] NAIL, 6 OR MORE 09/08/2024 11030-YBAAHGZ NAIL, 6 OR MORE 12/08/2024 30844-OVRA SKIN LESIONS, 2 TO 4 12/09/19 48915-OWNF SKIN LESIONS, 2 TO 4 09/09/19 Next Appt Details Provider Name:Paras Alejandra , 03/02/2025 09:00:00 AM, [address] [facility], [facility] [address], [place], [address], Insurance Providers Payer Name Payer Address Payer Phone Subscriber Number Group Number Insured Name Patient Relationship to Insured Coverage Start Date Coverage End Date [facility] [id number] ADRIANA Ridley [phone] [id number] Shauna Littlejohn Self - patient is the insured Medical (General) History Medical History History ICD Code Arthritis Diabetic High Blood Pressure Chicken pox Joint implants/screws Transfusions dysuria Obesity Hyperlipidemia Mammogram Surgical History Surgery Date(Month/Year) hysterectomy Knee 07/2023 colonoscopy
--- OUTSIDE RECORDS SUMMARY | 2025-01-21 12:48 | XMS_ITS | Clinical Summary ---
Author Organization [facility] Address [address] [place] [address] Care Team Providers Care Corporate Communications Associate Name Role Phone Ana Laura Montejo [facility] Primary Care Provider [phone] Source Comments PLEASE NOTE, if this patient [...] complication, without long-term current use of insulin ([facility]) Take 1 Tab by mouth once daily Swallow whole. Do not break, crush or chew. 30 Tab 5 8 Active metFORMIN (GLUCOPHAGE) 1,000 mg tabletIndications :Controlled type 2 diabetes mellitus without complication, without long-term current use of insulin ([facility]) Take 1 Tab by mouth 2 (two) times daily with a meal 60 Tab 2 8 Active blood sugar diagnostic (FREESTYLE LITE STRIPS) stripsIndications :Controlled type 2 diabetes mellitus without complication, without long-term current use of insulin ([facility]) Test blood glucose twice a day [...] (refused vaccines there after) DM (diabetes mellitus) ([facility]) 3 Obesity 12/30/2012 HTN (hypertension) 12/30/2012 Normal colonoscopy 12/30/2012 Overview (12/30/2012): Done 10/08/2009 Hypercholesteremia 12/30/2012 S/P hysterectomy 12/30/2012 S/P left unicompartmental knee replacement 12/30 Osteoarthritis of both knees 12/30/2012 Overview (03/23/2015): Sees ALLISON and receiving cortisone injection Immunizations Immunization Administration Dates Next Due INFLUENZA, SEASONAL, INJECTABLE 03/30/2015,04/07,04/30/2013 PNEUMOCOCCAL POLYSACCHARIDE PPV23 (Pneumovax 23) 03/30/2015,02/02/2010 TDAP 12/28/2015 Family History Medical History Relation [...] 88 02/17/2016 11:37 AM EDT Temperature 36.7 C (98 F) 02/17/2016 11:37 AM EDT Respiratory Rate 16 [...] Hepatitis C Screening [address] Colonography 1994 FIT/gFOBT 1994 Fecal DNA 1994 Flexible Sigmoidoscopy 1994 Imm-Zoster, Recombinant (1 of 2) 11/18/1999 Bone Density Screening 2014 Falls Prevention 2014 Imm-Pneumococcal 50+ (2 of 2 - PCV) 03/30/2016 03/30/2015, 02/02/2010 Urine Albumin Creatinine Rat io Screening 03/30/2016 03/30/2015, 10/21/2013, 04/30/2013 Hemoglobin A1c 06/29/2016 12/28/2015, 080 09/2014, 04/07/2014, Additional history exists Lipid Screening 12/27/2016 12/28/2015, 080 09/2014, 04/07/2014, Additional history exists Serum Creatinine 12/27/2016 12/28/2015, 09/2014, 04/07/2014, Additional history exists Tobacco Cessation Counseling (#1) 12/27/2016 Retinopathy Screening 02/15/2017 02/16/2016 (Managed by Outside Provider), 02/11/2015, 03/10/2014 (Managed by Outside Provider) Annual Wellness (Adult): Ind icated (All Coverage) 02/16/2017 02/17/2016, 01/05/2015, 04/30/2013 Diabetes Foot Exam 02/16/2017 02/17/2016 Colonoscopy 11/09/2019 11/08/2009 (Katie ged by Outside Provider) Colorectal Cancer Screening 11/09/2019 [id number] ( season) 2024 Alcohol and Drug Screen 06/04/2024 01/05/2015 Depression Annual Screen 06/04/2024 Dental BW 06/22/2024 06/20/2023 Dental Examination 06/22/2024 06/20/2023 Imm-RSV (adult) (1 - 1-dose 75+ series) 2024 Imm-Influenza (#1) 2025 03/30/2015, 1 06/07/2013, 04/30/2013 Imm-DTaP/Tdap/Td (2 - Td or Tdap) 12/27/2025 016 Dental FMX/Pano 06/22/2028 06/20/2023 Procedures Procedure Name Priority Date/Time Associated Diagnosis Comments INTRAORAL - COMP SERIES OF RADIOGRAPHIC IMAGES Routine 06/20/2023 1:40 PM EST Caries of enamel (incipient) Defective dental jehovah's witness Encounter for dental examination COMP ORAL EVALUATION [...] Relevant to Health Maintenance Results * (ABNORMAL) A1C future lab (12/28/2015 9:20 AM EDT) GLYCATED HEMOGLOBIN A1C 7.0(H) <6.5 % [facility] ESTIMATED AVERAGE GLUCOSE 154 mg/dL [facility] Blood specimen (specimen) Blood / Unknown 12/28/2015 9:20 AM EDT 12/28/2015 12:46 PM EDT Narrative [facility] - 12/28/2015 7:54 PM EDT [email or web address] [address] [place] [address] PT [place] [id number] ORD# [id number] us Frandy Bartlett MD LAB - BLOOD [place] [address], * lipid future lab (12/28/2015 9:20 AM EDT) CHOLESTEROL 144 0 - 200 mg/dL [facility] TRIGLYCERIDES 128 0 - 150 mg/dL [facility] HDL CHOLESTEROL 48 >40 mg/dL [facility] LDL CALCULATED 71 0 - 100 mg/dL [facility] TC-HDLC RATIO 3.0 0 - 4.4 mg/dL [facility] Blood specimen (specimen) Blood / Unknown 12/28/2015 9:20 AM EDT 12/28/2015 12:46 PM EDT Narrative [facility] - 12/28/2015 4:03 PM EDT [facility] [address] [place] [address] PT ID [id number] ORD# [id number] us Frandy Barltett MD LAB - BLOOD DRAW Edited Result - Final [facility] [address] [place] [address], [place] [phone] * (ABNORMAL) Basic Metabolite future (12/28/2015 9:20 AM EDT) GLUCOSE 123(H) 70 - 100 mg/dL [facility] Comment:Reference range appl icable to fasting specimens only BUN 11 5 - 25 mg/dL [facility] CREAT 0.68 0.5 - 1.1 mg/dL [facility] GLOMERULAR FILTRATION RATE > 60 [facility] Comment: If patient is -[place], multiply result by 1.21 Chronic Kidney Disease: < 60 ml/min/1.73 square meters Kidney Failure: < 15 ml/min/1.73 square meters SODIUM 140 133 - 145 mmol/L [facility] Comment:Note new units effective 11/16/15 POTASSIUM 4.7 3.5 - 5.5 mmol/L [facility] Comment:Note new units effective 11/16/15 CHLORIDE 105 96 - 110 mmol/L [facility] Comment:Note new units effective 11/16/15 CO2 30 21 - 32 mmol/L [facility] Comment:Note new units effective 11/16/15 ANION GAP 5 3 - 11 [facility] CALCIUM 9.0 8.5 - 10.5 mg/dL [facility] Blood specimen (specimen) Blood / Unknown 12/28/2015 9:20 AM EDT 12/28/2015 12:46 PM EDT [facility] - 12/28/2015 4:03 PM EDT [email or web address] [address] [place] [address] [place] ID [id number] ORD# [id number] Frandy Bartlett MD LAB - BLOOD DRAW Final Result [address] [address], [place] [phone] * Urine Micro Albumin (03/30/2015 11:42 AM EDT) MICROALBUMIN, RANDOM 6.5 0.0 - 29.0 mg/L [facility] MICROALB/CRE RATIO RANDOM < 6.4 0.0 - 30.0 mg/G [facility] CREATININE, RANDOM URINE 101 mg/dL [facility] Urine specimen (specimen) Urine specimen / Unknown 03/30/2015 11:42 AM EDT 03/30/2015 1:50 PM EDT [facility] - 03/30/2015 2:42 PM EDT [email or web address] [address] [place] [address] [place] [id number] ORD# [id number] Frandy Bartlett MD LAB URINE AMBULATORY Final Resu lt [address] [address], [place] [phone] from Last 3 Months or Most Recently Relevant to Health Maintenance Insurance [place] [employer] Care Teams Corporate Communications Associate Relationship Specialty Start Date End Date Ana Laura Montejo FNP [address] [place] [id number] PCP - General 07/30/18
[2025-01-21 14:57] LABS: MANUAL DIFF FLAG NO
[2025-01-21 15:02] LABS: Hematocrit 38.7 % (37.0-47.0); Hemoglobin 12.4 g/dl (12.0-16.0); Imm Gran Abs Auto 0.02 X10*3/uL (0.00-0.03); Imm Gran Pct Auto 0.3 % (0.0-0.4); Lymphocytes Absolute Auto 3.0 X10*3/uL (1.2-4.9); Mean Corpuscular HGB Conc 32.0 g/dl (31.0-35.0); Mean Corpuscular Hemoglobin 31.2 pg (27.0-33.0); Mean Corpuscular Volume 97.2 fL (80.0-98.0); NRBC Abs Auto 0.000 X10*3/uL (0.0-0.012); NRBC Pct Auto 0.0 /100WBC (0.0-0.2); Platelet Count 253 X10*3/uL (160-400); Red Blood Count 3.98 X10*6/uL (4.20-5.50); White Blood Count 7.1 X10*3/uL (4.8-10.8)
[2025-01-21 15:53] LABS: Alanine Aminotransferase 17 U/L (0-31); Albumin Level 4.3 g/dL (3.5-5.0); Alkaline Phosphatase 81 U/L (39-117); Anion Gap 13 (12-20); Aspartate Amino Transferase 75 U/L (5-31); Blood Urea Nitrogen 12 mg/dL (9-16); Calcium 9.2 mg/dL (8.4-10.2); Carbon Dioxide 28 mmol/L (22-29); Chloride 105 mmol/L (96-108); Cholesterol 109 mg/dL (<200); Estimated Glomerular Filt Rate > 60; HDL Cholesterol 43 mg/dL (>40); Potassium 4.5 mmol/L (3.3-5.1); Sodium 141 mmol/L (135-145); Total Protein 6.9 g/dL (6.5-8.0); Triglycerides 89 mg/dL (<150)
[2025-01-21 16:20] LABS: Hemoglobin A1C 132.7220 umol/L; Total Hemoglobin (HGBA1C) 3313.9171 umol/L
== END 2025-01-21 11:30 | disposition home or self-care (01) ==
LOC: HO.HMGCLDS 11:29
PROVIDERS: PCP Internal Medicine; Visit Provider Internal Medicine
DX: E11.9 Type 2 diabetes mellitus without complications (principal); E78.5 Hyperlipidemia, unspecified
CPT/HCPCS: 36415; 80053; 80061; 83036; 85025

== ENCOUNTER 2025-01-27 08:02 | Outpatient (REF) | payer OTHER, SELFPAY ==
[2025-01-27 11:38] LABS: Microalbum/Creatinine Ratio Ur 8.8 ug/mg cr (<30)
== END 2025-01-27 08:03 | disposition home or self-care (01) ==
LOC: HO.HMGCLDS 08:02
PROVIDERS: PCP Internal Medicine; Visit Provider Internal Medicine
DX: Z00.00 Encounter for general adult medical examination without abnormal findings (principal); E11.9 Type 2 diabetes mellitus without complications; E78.5 Hyperlipidemia, unspecified; E66.9 Obesity, unspecified
CPT/HCPCS: 82043; 82570

== ENCOUNTER 2025-01-27 08:02 | Outpatient (AMB) | payer OTHER, SELFPAY ==
--- OUTSIDE RECORDS SUMMARY | 2025-01-27 08:05 | XMS_ITS | Patient Health Record ---
Author Organization [facility] Angelique cassie Cullman Address [address] [place] [address] Care Team Providers Care Grain And Yeast Plants Supervisor Name Role Phone Lolly Mchugh MD Primary Care Provider Yusufa Paras Quintana Unavailable [phone] Allergies No Known Allergies Results Component Value Reference Range Notes HEMOGLOBIN A1C (GLYCOHEMOGLO BIN) Reviewed date:12/08/2024 09:20:26 AM Interpretation: Performing Lab: Notes/Report: HEMOGLOBIN A1C % (HH) 5.5 HEMOGLOBIN A1C (GLYCOHEMOGLO BIN) Reviewed date:09/08/2024 08:49:28 AM Interpretation: Performing Lab: Notes/Report: HEMOGLOBIN A1C % (HH) 5.8 Reason For Referral Diagnosis 1 Type 2 diabetes radha itus with diabetic polyneuropathy (E11.42) Referring Provider First Name Lolly Referring Provider Last Name Lolita Referred Organization [facility] Referred Provider Paras Alejandra Referred Address [address] [place] [address],[address] [place] [phone], Referred Provider Specialty Podiatry Referral Priority Routine [...] Problem Acquired hammer toe of right foot ([id number] ) Other hammer toe(s) (acquired), right foot (M20.41) Active confirmed Problem Acquired hammer toe of left foot (2528070022652744 ) Other hammer toe(s) (acquired), left foot (M20.42) Active confirmed Problem Polyneuropathy due to type 2 diabetes mellitus (954218770) Type 2 diabetes mellitus with diabetic polyneuropathy (E11.42) Active confirmed Vital Signs Blood pressure diastolic 70 mm Hg 12/08/2024 Height 5ft 3in in 12/08/2024 Blood pressure systolic 130 mm Hg 12/08/2024 Weight 248 lbs 12/08/2024 BMI 43.93 kg/m2 12/08/2024 Procedures Procedure Date Ordered Date Performed Result Body Sit e 43228-WLTZRSN NAIL, 6 OR MORE 09/08/2024 N/A 36733-NIFP SKIN LESIONS, 2 TO 4 09/08/2024 N/A 86136-KRHMNUU NAIL, 6 OR MORE 12/08/2024 N/A 40419-ZRRJ SKIN LESIONS, 2 TO 4 12/08/2024 N/A Encounters Encounter Location Date Provider Diagnosis [facility] [address] [address] 09/08/2024 Paras Alejandra Type 2 diabetes mellitus with diabetic polyneuropathy E11.42 ; Tinea unguium B35.1 ; Other hammer toe(s) (acquired), right foot M20.41 and Other hammer toe(s) (acquired), [facility] [address] [place] [id number] 12/08/2024 Paras Alejandra Type 2 diabetes mellitus with diabetic polyneuropathy E11.42 ; Tinea unguium B35.1 ; Other hammer toe(s) (acquired), right foot M20.41 and Other hammer toe(s) (acquired), left foot M20.[address] [address] 07/01/2024 Paras Ny [address] [address] 09/12/2024 Parasmarcus Alejandra [address] [address] 09/18/2024 Paras Ny [address] [address] 10/15/2024 Paras Alejandra Assessments Encounter Date Diagnosis [...] Treatment Pending Test Test Name Order Date 41761-[id number] NAIL, 6 OR MORE 09/08/2024 58219-CYLTJBK NAIL, 6 OR MORE 12/08/2024 87583-PCHE SKIN LESIONS, 2 TO 4 12/09/19 39797-AVOM SKIN LESIONS, 2 TO 4 09/09/19 Next Appt Details Provider Name:Paras Alejandra , 03/02/2025 09:00:00 AM, [address] [facility], [place], [address], Insurance Providers Payer Name Payer Address Payer Phone Subscriber Number Group Number Insured Name Patient Relationship to Insured Coverage Start Date Coverage End Date [facility] [address] [place] [phone] [id number] Shauna Littlejohn Self - patient is the insured Medical (General) History Medical History History ICD Code Arthritis Diabetic High Blood Pressure Chicken pox Joint implants/screws Transfusions dysuria Obesity Hyperlipidemia Mammogram Surgical History Surgery Date(Month/Year) hysterectomy Knee 07/2023 colonoscopy
--- OUTSIDE RECORDS SUMMARY | 2025-01-27 08:05 | XMS_ITS | Clinical Summary ---
Author Organization [facility] Address [address] [place] [address] Care Team Providers Care Migratory Farm Hand Name Role Phone Ana Laura Montejo [facility] Primary Care Provider [phone] Source Comments PLEASE NOTE, if this patient [...] complication, without long-term current use of insulin ([facility]) Take 1 Tab by mouth once daily Swallow whole. Do not break, crush or chew. 30 Tab 5 8 Active metFORMIN (GLUCOPHAGE) 1,000 mg tabletIndications :Controlled type 2 diabetes mellitus without complication, without long-term current use of insulin ([facility]) Take 1 Tab by mouth 2 (two) times daily with a meal 60 Tab 2 8 Active blood sugar diagnostic (FREESTYLE LITE STRIPS) stripsIndications :Controlled type 2 diabetes mellitus without complication, without long-term current use of insulin ([facility]) Test blood glucose twice a day [...] (refused vaccines there after) DM (diabetes mellitus) ([facility]) 3 Obesity 12/30/2012 HTN (hypertension) 12/30/2012 [...] by Outside Provider) Colorectal Cancer Screening 11/09/2019 [id number] ( season) 2024 Alcohol and Drug Screen [...] EST Caries of enamel (incipient) Defective dental oriental orthodox Encounter for dental examination COMP ORAL EVALUATION [...] EDT) GLYCATED HEMOGLOBIN A1C 7.0(H) <6.5 % [facility] ESTIMATED AVERAGE GLUCOSE 154 mg/dL [facility] Blood specimen (specimen) Blood / Unknown 12/28/2015 9:20 AM EDT 12/28/2015 12:[address] [facility] - 12/28/2015 7:54 PM EDT [facility] [address] [place] [address] PT [place] [id number] ORD# [id number] us Frandy Bartlett MD LAB - B[place]OD [place] [address], * lipid future lab (12/28/2015 9:20 AM EDT) CHOLESTEROL 144 0 - 200 mg/dL [facility] TRIGLYCERIDES 128 0 - 150 mg/dL [facility] HDL CHOLESTEROL 48 >40 mg/dL [facility] LDL CALCULATED 71 0 - 100 mg/dL [facility] TC-HDLC RATIO 3.0 0 - 4.4 mg/dL [facility] Blood specimen (specimen) Blood / Unknown 12/28/2015 9:20 AM EDT 12/28/2015 12:[address] [facility] - 12/28/2015 4:03 PM EDT [facility] [address] [place] [address] PT ID [id number] ORD# [id number] us Frandy Bartlett MD LAB - BLOOD DRAW Edited Result - Final [facility] [address] [place] [address], [place] [phone] * (ABNORMAL) Basic Metabolite future (12/28/2015 9:20 AM EDT) GLUCOSE 123(H) 70 - 100 mg/dL [facility] Comment:Reference range appl icable to fasting specimens only BUN 11 5 - 25 mg/dL [facility] CREAT 0.68 0.5 - 1.1 mg/dL [facility] GLOMERULAR FILTRATION RATE > 60 [facility] Comment: If patient is -[place] Islander, multiply result by 1.21 Chronic Kidney Disease: < 60 ml/min/1.73 square meters Kidney Failure: < 15 ml/min/1.73 square meters SODIUM 140 133 - 145 mmol/L [facility] Comment:Note new units effective 11/16/15 POTASSIUM 4.7 3.5 - 5.5 mmol/L [facility] Comment:Note new units effective 11/16/15 CHLORIDE 105 96 - 110 mmol/L [facility] Comment:Note new units effective 11/16/15 CO2 30 21 - 32 mmol/L [facility] Comment:Note new units effective 11/16/15 ANION GAP 5 3 - 11 [facility] CALCIUM 9.0 8.5 - 10.5 mg/dL [facility] Blood specimen (specimen) Blood / Unknown 12/28/2015 9:20 AM EDT 12/28/2015 12:46 PM EDT [facility] - 12/28/2015 4:03 PM EDT [facility] [address] [place] [address] [place] [id number] ORD# [id number] Frandy Bartlett MD LAB - BLOOD DRAW Final Result [address] [address], [place] [phone] * Urine Micro Albumin (03/30/2015 11:42 AM EDT) MICROALBUMIN, RANDOM 6.5 0.0 - 29.0 mg/L [facility] MICROALB/CRE RATIO RANDOM < 6.4 0.0 - 30.0 mg/G [facility] CREATININE, RANDOM URINE 101 mg/dL [facility] Urine specimen (specimen) Urine specimen / Unknown 03/30/2015 11:42 AM EDT 03/30/2015 1:50 PM EDT [facility] - 03/30/2015 2:42 PM EDT [facility] [address] [place] [address] [place] [id number] ORD# [id number] Frandy Bartlett MD LAB URINE AMBULATORY Final Resu lt [address] [address], [place] [phone] from Last 3 Months or Most Recently Relevant to Health Maintenance [place] [employer] Care Teams Migratory Farm Hand Relationship Specialty Start Date End Date Ana Laura Montejo FNP [address] [place] [id number] PCP - General 07/30/18
--- OUTSIDE RECORDS SUMMARY | 2025-01-27 08:05 | XMS_ITS | Clinical Summary ---
Author Organization [facility] Address [address] [place] [address] Care Team Providers Care Pediatric Physical Therapy Assistant Name Role Phone Harshajulietafelix Lolly Primary Care Provider [phone] Allergies No known active allergies Medications OneTouch [...] patient's age to complete this topic Insurance [facility] Care Teams Pediatric Physical Therapy Assistant Relationship Specialty Start Date End Date Lolly Mchugh [address] [place] [address] PCP - General Internal Medicine 03/30/21
[2025-01-27 08:07] VITALS: BP 112/70; PULSE 74; RESP 16; TEMP 36.6; O2SAT 96; BMI 44.3
--- NOTE | 2025-01-27 08:07 | MHC.PC.OV ---
Vital Signs 01/27/25 08:07 Height 5 ft 3 in Weight 250 lb BMI 44.3 BP 112/70 Blood Pressure Location Lt brachial Position Sitting Respiration 16 Pulse 74 Pulse Source Pulse Oximeter Temp 97.8 F Temp Source Oral Pulse Oximetry (%) 96 Oxygen Delivery Method Room Air Intake Visit Reasons: annual exam Intake Note: Pt is here today for her PE Allergies No Known Allergies Allergy (Verified 01/27/25 08:08) Medication List - Last Reconciled 01/27/25 by Lolly Mchugh MD atorvastatin 40 mg PO DAILY 90 days blood-glucose meter (Ezose SciencesTouch Verio Flex Start kit) As directed dulaglutide (Trulicity) 4.5 mg (0.5 mL) subcut QWEEK furosemide 40 mg PO DAILY metformin 1,000 mg PO BID nystatin 1 appl topical DAILY PRN OneTouch Ultra Test (blood sugar diagnostic) twice a day NS pen needle, diabetic (BD Ultra-Fine Short Pen Needle) As directed Tobacco use date assessed: 01/27/25 Fall risk assessment: No Falls in past year Last assessed Fall Risk: 01/27/25 Dental Screening Dental Screen Date: 01/27/25 Did you have a dental visit in the last 12 months?: No Did you have a dental problem in the last 6 months where you did not have access to dental care?: No Was dental information given to patient?: Patient declined HPI annual exam HPI Details Pt presents for PE. [facility], [facility] Medical History (Updated 01/27/25 @ 18:27 by Lolly Mchugh MD) Annual physical exam Right knee injury Arthritis Normal colonoscopy DM type 2 (diabetes mellitus, type 2) Foot pain, bilateral Osteoarthritis of shoulders, bilateral Dysuria History of mammogram Osteoarthritis of right knee Obesity Hyperlipidemia Surgical History H/O colonoscopy History of arthroplasty of right knee History of knee replacement procedure of right knee History of hysterectomy History of knee replacement procedure of left knee Family History Father No problems noted. Mother No problems noted. Brother No problems noted. Brother No problems noted. Sister No problems noted. Sister No problems noted. Daughter No problems noted. Social History Household Members: Family Housing: House Are you a primary foster care case manager to a significant other at home: No Do you presently have visiting nurse or other home services: No Alcohol intake: never Patient Tobacco Use Status: Current everyday Tobacco user Tobacco use type: Cigarette Cigarettes Per Day: 1 e-Cigarette/Vaping Use: Never Used service: No Current occupational status: retired Cognitive needs: No Hearing needs: No Vision needs: Yes Questionnaire Thrive Questionnaire Date Thrive assessed: 07/11/24 I am a: Patient What is your living situation today?: I have a steady place to live Within the past 12 months, did the food you bought not last and you didn't have the money to get more?: I choose not to answer this question Within the past 12 months, did you worry whether your food would run out before you got money to buy more?: I choose not to answer this question Do you have trouble paying for medicines?: No Do you have trouble getting transportation to medical appointments?: No Do you have trouble paying your heating and electricity bill?: No Do you have trouble taking care of your child, family member or friend?: No Do you have trouble with day-to-day activities such as bathing, preparing meals, shopping, managing finances, etc.?: No Are you currently unemployed and looking for a job?: I choose not to answer this question Are you interested in more education?: I choose not to answer this question Please select the resources that you would like help with: None Currently or been in a relationship where the following occur: I choose not to answer THRIVE Score: 0 AUDIT C Alcohol Use Questionnaire (AUDIT-C) 3. How often do you have six or more drinks on one occasion?: Never Total Score: 0 GINO-7 AMB Questionnaire GINO-7 Date GINO - 7 assessed: 07/11/24 Source: Developed by Drs. Luis Armando Morales, Karime Green, Jann Joaquin and colleagues, with an educational denny from [employer]. Review of Systems Const All systems reviewed & are unremarkable except as noted in HPI and below Eyes Reports no additional complaints ENT Reports no additional complaints Card Reports no additional complaints Resp Reports no additional complaints GI Reports no additional complaints Reports no additional complaints Physical exam (Primary Care) Vital Signs: Last Vital Signs Temp 97.8 F 01/27/25 08:07 Pulse 74 01/27/25 08:07 Resp 16 01/27/25 08:07 BP 112/70 01/27/25 08:07 Pulse Ox 96 01/27/25 08:07 Oxygen Delivery Method Room Air 01/27/25 08:07 BMI result Body Mass Index 44.3 Tobacco/Smoking Status: Tobacco use Status Tobacco use date assessed 01/27/25 01/27/25 08:11 Patient Tobacco Use Status Current everyday Tobacco 01/27/25 08:11 Tobacco use type Cigarette 01/27/25 08:11 e-Cigarette/Vaping Use Never Used 01/27/25 08:11 Thrive Assessment: Date of Thrive Assessment Date Thrive assessed 07/11/24 01/27/25 08:11 Currently or been in a relationship where the following occur: I choose not to answer Const General: no acute distress HENMT Head: Yes normal to inspection Face and sinus: Yes normal facial exam Eyes General: appearance normal, both eyes and all related structures Neck Neck: Yes supple Resp Effort & Inspection: normal respiratory effort Auscultation: clear to auscultation bilaterally Cardio Rhythm: regular rhythm Heart sounds: S1 normal heart sound present and S2 normal heart sound present GI Inspection: Yes normal to inspection Palpation (GI): Soft to palpation Percussion: Yes normal to percussion Auscultation: normal bowel sounds Coding Level of Care Code Est Pt Prev Care >65y(67850) Diagnoses DM type 2 (diabetes mellitus, type 2) E11.9 Hyperlipidemia E78.5 Obesity E66.9 Annual physical exam Z00.00 Assessment & Plan Assessment & Plan (1) DM type 2 (diabetes mellitus, type 2): Code(s): E11.9 - Type 2 diabetes mellitus without complications Category: Medical Plan: A1C is 5.8, cont ADA diet and Metformin and Trulicity, f/u 6 mths (2) Hyperlipidemia: Code(s): E78.5 - Hyperlipidemia, unspecified Category: Medical Plan: cont statin (3) Obesity: Code(s): E66.9 - Obesity, unspecified Category: Medical Plan: decrease caloric intake, increase physical activity, weight loss discussed (4) Annual physical exam: Code(s): Z00.00 - Encounter for general adult medical examination without abnormal findings Category: Medical Plan: Well-balanced diet regular physical activity discussed with the patient she is up-to-date with mammogram and will have a colonoscopy follow-up in 6 months with a fasting labs before Orders: Orders Comprehensive Sutton. Panel Fast 6 Months E11.9 - Type 2 diabetes mellitus without complications, E66.9 - Obesity, unspecified, E78.5 - Hyperlipidemia, unspecified Complete Blood Count Auto Diff 6 Months E11.9 - Type 2 diabetes mellitus without complications, E66.9 - Obesity, unspecified, E78.5 - Hyperlipidemia, unspecified Hemoglobin A1c 6 Months E11.9 - Type 2 diabetes mellitus without complications, E66.9 - Obesity, unspecified, E78.5 - Hyperlipidemia, unspecified Lipid Panel 6 Months E11.9 - Type 2 diabetes mellitus without complications, E66.9 - Obesity, unspecified, E78.5 - Hyperlipidemia, unspecified
== END 2025-01-27 08:55 | disposition home or self-care (01) ==
LOC: HO.HMCC 08:02
PROVIDERS: PCP Internal Medicine; Visit Provider Internal Medicine
DX: Z00.00 Encounter for general adult medical examination without abnormal findings (principal); E11.69 Type 2 diabetes mellitus with other specified complication; E66.9 Obesity, unspecified; Z68.41 Body mass index [BMI] 40.0-44.9, adult; E78.5 Hyperlipidemia, unspecified